=== PATIENT | male | born 1950 | race Caucasian/White ===

== ENCOUNTER 2023-01-23 09:46 | Inpatient (IN) | payer MEDICARE, OTHER ==
[~2023-01-23] VITALS: Ht 182.9 cm; Wt 62.1 kg
--- NOTE | 2023-01-23 09:55 | NUR ---
[id number] HOME, FOUND LAYING IN THE FLOOR S/P WELFARE CHECK, CONFUSED C/O BODY PAIN, BG 146 LOGISTICS TEAM LEAD.
[2023-01-23] MEDS ORDERED: IV NS 0.9% 1,000 ML BAG IV ONE ×2 (10:00→11:00)
[2023-01-23] MEDS ORDERED: DULO30CA2 PO (10:11)
[2023-01-23] MEDS ORDERED: FLUT12AE15 INH (10:11)
[2023-01-23] MEDS ORDERED: ALBU18HF2 INH (10:11)
[2023-01-23] MEDS ORDERED: TAMS-12 PO (10:11)
--- NOTE | 2023-01-23 10:11 | NUR ---
established iv line 20 g right ac
--- NOTE | 2023-01-23 10:11 | NUR ---
covid swab taken
--- NOTE | 2023-01-23 10:15 | NUR ---
blood sample obtained
[2023-01-23 10:27] LABS: BASOPHILS % (AUTO) 0.1 % (0.0-2.0); EOSINOPHILS % (AUTO) 0.1 % (0.0-6.0); HEMATOCRIT 40 % (39-51); LYMPHOCYTES % (AUTO) 5.4 % (20.0-44.0); MEAN CORPUSCULAR HGB CONC 32 g/dl (31.0-36.0); MEAN CORPUSCULAR VOLUME 102 fL (80-96); MONOCYTES # (AUTO) 1.2 K/uL (0.1-1.30); MONOCYTES % (AUTO) 6.3 % (2.0-12.0); NEUTROPHILS # (AUTO) 16.2 K/uL (1.8-8.9); NEUTROPHILS % (AUTO) 88.1 % (43.0-81.0); PLATELET COUNT (AUTO) 289 K/uL (150-450); RED BLOOD CELL COUNT(AUTO) 3.96 MIL/uL (4.5-6.0); WHITE BLOOD COUNT (AUTO) 18.4 K/uL (4.3-11.0)
[2023-01-23 10:41] LABS: ALCOHOL, BLOOD < 3 mg/dL (0-0); CARBON DIOXIDE 28 mmol/L (21-32); CHLORIDE 99 mmol/L (98-107); CREATININE 1.7 mg/dL (0.6-1.3); GLUCOSE 120 mg/dL (74-106); POTASSIUM 4.4 mmol/L (3.5-5.1); SODIUM SERUM 142 mmol/L (136-145); UREA NITROGEN, BLOOD 79 mg/dL (7-18)
[2023-01-23 10:42] LABS: CALCIUM, SERUM 17.2 mg/dL (8.5-10.1)
[2023-01-23] MEDS ORDERED: CEFTRIAXONE 1GM BAG (ER ONLY) 50 ML IV ONE ×2 (10:52→11:00)
[2023-01-23 10:55] LABS: ALANINE AMINOTRANSFERASE 30 U/L (12-78); ALBUMIN 3.7 g/dL (3.4-5.0); ALKALINE PHOSPHATASE 125 U/L (46-116); ASPARTATE AMINOTRANSFERASE 116 U/L (15-37); BILIRUBIN,DIRECT 0.3 mg/dL (0.0-0.2); BILIRUBIN,TOTAL 0.7 mg/dL (0.2-1.0); TOTAL PROTEIN, SERUM 8.6 g/dL (6.4-8.2)
[2023-01-23 11:18] LABS: THYROID STIMULATING HORMONE 0.777 uIU/mL (0.358-3.74)
--- NOTE | 2023-01-23 11:44 | NUR ---
Mike Stoner, friend. [phone]
[2023-01-23] MEDS ORDERED: ONDANSETRON HCL/PF 4 MG/2 ML VIAL IVP PRN (13:30)
[2023-01-23] MEDS ORDERED: Z GUARD REMEDY 4 OZ OINT TP PRN (13:30)
[2023-01-23] MEDS: IV NS 0.9% 1,000 ML IV SCH ×2 (13:30→22:37)
[2023-01-23] MEDS ORDERED: MAGNESIUM HYDROXIDE 30 ML UDC PO PRN (13:30)
[2023-01-23] MEDS ORDERED: MAG HYDROX/AL HYDROX/SIMETH 30 ML UDC PO PRN (13:30)
[2023-01-23] MEDS ORDERED: ACETAMINOPHEN 325 MG TABLET PO PRN (13:30)
--- NOTE | 2023-01-23 14:50 | NUR ---
16 FR ventura catheter inserted per sterile protocal. Immediate output 1100 ML of urine, color brown , clarity cloudy patient tolerated the procedure.
--- NOTE | 2023-01-23 14:50 | NUR ---
room assigned. 254 icu. admitting aware
[2023-01-23] MEDS ORDERED: ENOXAPARIN SODIUM 30 MG/0.3 ML DISP.SYRIN SQ SCH (15:00)
[2023-01-23] MEDS ORDERED: PIPERACILLIN /TAZOBACTAM 2.25 G in IV D5W 50 ML IV ONE (15:00)
[2023-01-23 15:30] LABS: BILIRUBIN,URINE 1+ (NEGATIVE); COLOR,URINE YELLOW (YELLOW); LEUKOCYTE ESTERASE ,URINE NEGATIVE (NEGATIVE); NITRITE, URINE NEGATIVE (NEGATIVE); PROTEIN,URINE 1+ mg/dl (NEGATIVE); UGLUCOSE NEGATIVE (NEGATIVE); UROBILINOGEN,URINE 0.2 EU/dL (0.2)
[2023-01-23] MEDS ORDERED: PAMIDRONATE 90 MG in IV NS 0.9% 500 ML IV ONE (15:30)
[2023-01-23] MEDS ORDERED: ZOSYN IVPB 3.375 G in IV D5W 50ml IV ONE (15:30)
[2023-01-23] MEDS ORDERED: ALBUTEROL FS 2.5 MG/0.5 ML VIAL.NEB NEB PRN (15:30)
[2023-01-23 15:59] LABS: BACTERIA,URINE RARE /HPF (None Seen); SQUAMOUS EPITHELIAL CELL,UR 0-2 /HPF (None Seen); WBC,URINE 0-2 /HPF (0-3)
[2023-01-23 16:00] LABS: MUCUS,URINE Few /LPF (None Seen); URINE AMORPHOUS URATE Few /HPF (None Seen)
--- NOTE | 2023-01-23 16:10 | NUR ---
report given to Walker MEDRANO
--- NOTE | 2023-01-23 16:20 | NUR ---
ROOM 109
--- NOTE | 2023-01-23 16:28 | NUR ---
report given to Soon RN , patient is going to [facility] for tele
--- NOTE | 2023-01-23 16:54 | NUR ---
moved to inpatient room safely per acls protocol
[2023-01-23 17:00] VITALS: BP 141/56
--- NOTE | 2023-01-23 17:00 | NUR ---
RN NOTE PATIENT ARRIVED FROM ER, A/OX1 CONFUSED. NC 4 LITERS O2 SAT 97%. RAC #20 NS INTACT AND FLUSHING. NO SKIN ISSUE. NOT ABLE TO OBTAIN INFORMATION FROM PATIENT DUE TO CONFUSION AND ALTERED MENTAL STATUS. PATIENT WAS FOUND ON THE FLOOR AND TAKEN TO ER. ALL SAFETY PRECAUTION IMPLEMENTED AND WILL CONTINUE THE CARE THROUGHOUT THE SHIFT AND WILL ENDORSE THE PATIENT TO THE SALES HOST NURSE FOR BRENDAN.
[2023-01-23] MEDS: FUROSEMIDE 20 MG/2 ML VIAL IV SCH (17:48)
[2023-01-23 18:46] VITALS: BP 141/56
--- NOTE | 2023-01-23 19:00 | NUR ---
RN NOTE PATIENT'S 1500 MEDIATIONS GIVEN LATE AROUND 1900 DUE TO DELAY FROM ER TRANSFERRING. PATIENT ARRIVED TO [facility] ROOM 109 AT 1700. NO MISSED MEDICATIONS JUST CHANGING IN TIME.
--- NOTE | 2023-01-23 19:30 | NUR ---
RN OPENING NOTES: RECEIVED PT IN BED, AWAKE, ALERT/ORIENTED X1 WITH EPISODES OF CONFUSION WITH UNCLEAR SPEECH. O2 AT 4L/MIN VIA N/C AND PT TOLERATED WELL. O2 SAT 98%. IV ACCESS ON RAC INTACT AND PATENT. NO S/S OF INFILTRATIONS. RUNNING NS AT 125 CC/HR. NO C/O PAIN OR DISCOMFORT. NO ACUTE DISTRESS. ON BILATERAL SOFT RESTRAINTS BUT STILL PT TRYING TO GET UP FROM THE BED. ALL SAFETY MEASURES IN PLACE. BED ALARM ON. BED IN LOWEST POSITION AND LOCKED. SIDE RAILS UP X3, PLACE CALL LIGHT WITH IN REACH. WILL CONTINUE TO MONITOR
[2023-01-23] MEDS: ENOXAPARIN SODIUM 30 MG/0.3 ML DISP.SYRIN SQ SCH (19:39)
[2023-01-23 20:00] VITALS: BP 132/81
[2023-01-23] MEDS: PIPERACILLIN /TAZOBACTAM 3.375 G in IV D5W 100 ML IV SCH (21:12)
[2023-01-24] VITALS: BP 118/78
[2023-01-24 04:00] VITALS: BP 139/66
[2023-01-24] MEDS: IV NS 0.9% 1,000 ML IV SCH ×3 (05:43→20:33)
[2023-01-24] MEDS: PIPERACILLIN /TAZOBACTAM 3.375 G in IV D5W 100 ML IV SCH ×3 (05:43→20:30)
--- NOTE | 2023-01-24 06:52 | NUR ---
RN CLOSING NOTES: PT IN BED, SLEEPING BUT EASILY TO AROUSE, ALERT/ORIENTED X1 WITH EPISODES OF CONFUSION WITH UNCLEAR SPEECH. O2 AT 2L/MIN VIA N/C AND PT TOLERATED WELL. O2 SAT 96%. IV ACCESS ON RAC INTACT AND PATENT. NO S/S OF INFILTRATIONS. RUNNING NS AT 125 CC/HR. NO C/O PAIN OR DISCOMFORT. NO ACUTE DISTRESS. ON BILATERAL SOFT RESTRAINTS. RELEASED Q 2HORS TO CHECK THE CIRCULATION. ALL DUE MEDS GIVEN ORDERED. ALL SAFETY MEASURES IN PLACE. BED ALARM ON. BED IN LOWEST POSITION AND LOCKED. SIDE RAILS UP X3, PLACE CALL LIGHT WITH IN REACH. WILL ENDORSE TO MORNING SHIFT NURSE.
[2023-01-24 07:28] LABS: BASOPHILS % (AUTO) 0.1 % (0.0-2.0); CARBON DIOXIDE 29 mmol/L (21-32); CHLORIDE 108 mmol/L (98-107); CREATININE 1.5 mg/dL (0.6-1.3); EOSINOPHILS % (AUTO) 0.1 % (0.0-6.0); GLUCOSE 101 mg/dL (74-106); HEMATOCRIT 33 % (39-51); HEMOGLOBIN 10.7 g/dL (13.5-17.5); LYMPHOCYTES # (AUTO) 1.1 K/uL (0.8-4.8); MAGNESIUM 1.9 mg/dL (1.8-2.4); MEAN CORPUSCULAR HGB CONC 33 g/dl (31.0-36.0); MEAN CORPUSCULAR VOLUME 102 fL (80-96); MONOCYTES # (AUTO) 0.8 K/uL (0.1-1.30); MONOCYTES % (AUTO) 5.7 % (2.0-12.0); NEUTROPHILS # (AUTO) 11.5 K/uL (1.8-8.9); NEUTROPHILS % (AUTO) 86.1 % (43.0-81.0); PHOSPHORUS 3.2 mg/dL (2.5-4.9); PLATELET COUNT (AUTO) 221 K/uL (150-450); POTASSIUM 3.6 mmol/L (3.5-5.1); SODIUM SERUM 148 mmol/L (136-145); UREA NITROGEN, BLOOD 75 mg/dL (7-18); WHITE BLOOD COUNT (AUTO) 13.3 K/uL (4.3-11.0)
[2023-01-24 07:49] LABS: CALCIUM, SERUM 14.1 mg/dL (8.5-10.1)
[2023-01-24 08:00] VITALS: BP 113/72
[2023-01-24 08:00] LABS: FERRITIN 3500 ng/mL (8-388)
--- NOTE | 2023-01-24 08:06 | NUR ---
supervisor post wave notes Patient found in bed sleeping, confused, on 2 nasal cannula, head of the elevated, no SOB, on telemonitor, HR 96, has ventura catheter on gravity with yellow, clear urine noted. Patient is on soft restrain, will monitor closely.Patient has R AC intact and flushed well on IV fluids as ordered,. Bed in lowest and locked position, safety measure implemented,will continue to monitor
[2023-01-24 08:29] LABS: IRON, SERUM 67 ug/dl (50-175); TOTAL IRON BINDING CAPACITY 181 ug/dl (250-450)
[2023-01-24] MEDS ORDERED: NEPRO VAN 237 ML CAN PO PRN (08:30)
[2023-01-24] MEDS: FUROSEMIDE 20 MG/2 ML VIAL IV SCH ×2 (09:59→16:05)
[2023-01-24] MEDS: TAMSULOSIN 0.4 MG CAP.SR.24H PO SCH (09:59)
[2023-01-24] MEDS ORDERED: PAMIDRONATE 90 MG in IV NS 0.9% 500 ML IV ONE (10:00)
[2023-01-24] MEDS: FLUTICASONE/VILANTEROL 1 EACH BLST.W.DEV IH SCH (10:00)
[2023-01-24 12:00] VITALS: BP 111/61
[2023-01-24] MEDS: QUETIAPINE FUMARATE 25 MG TABLET PO PRN (12:52)
--- NOTE | 2023-01-24 12:56 | NUR ---
PATIENT CONFUSED DESPITE SOFT WRIST TRYING TO GET OUT OF BED ,MD NOTIFIED PRN SEROQUEL GIVEN.FALL RISK PRECAUTION OBSERVED.
[2023-01-24] MEDS: CALCITONIN,SALMON,SYNTHETIC 3.7 ML SPRAY.PUMP NS SCH (15:18)
[2023-01-24 16:00] VITALS: BP 138/52
--- NOTE | 2023-01-24 18:53 | NUR ---
PLANT TOUR GUIDE NOTES PATIENT IS IN BED, RESTING COMFORTABLE, UNABLE TO REMOVE SOFT RESTRAIN, PATIENT IS STILL AT RISK TO REMOVE ALL LINES AND AT RISK FOR FALLS. PATIENT HAS IV ON RIGHT AC INTACT AND FLUSHED WELL. PATIENT ON IV FLUIDS AND REFUSED DINNER AT THIS TIME. PATIENT ON ASSEMBLER GOLD FRAME ST HR 109. PATIENT IN LOWER BED, LOCKED POSITION, CALL LIGHT WITHIN REACH, WILL MONITOR CLOSELY AND SAFETY MEASURE IMPLEMENTED.
--- NOTE | 2023-01-24 19:30 | NUR ---
RN NOTE RECEIVED PT IN BED, ASLEEP, BUT EASILY AROUSABLE. NO S/SX OF ACUTE DISTRESS. PT SEEMS TO BE COMFORTABLE. ON 2LPM VIA NC, WELL ROSSY, NO SOB, NO ACUTE RESP DISTRESS NOTED. PT ATTACHED TO MEDICINAL PLANT PICKER. CURRENTLY INFUSING NS AT 125ML/HR ON LILI, NO S/SX OF CX. NO INFX/INFILTRATION ON IV SITE. FC IN PLACED, PATENT AND SECURED, DRAINING CLEAR YELLOW URINE. BILATERAL SOFT WRIST ON. SAFETY PRECAUTIONS IMPLEMENTED AT ALL TIMES. WILL CONT POC.
[2023-01-24 20:00] VITALS: BP 121/60
[2023-01-24] MEDS: ENOXAPARIN SODIUM 30 MG/0.3 ML DISP.SYRIN SQ SCH (20:32)
--- NOTE | 2023-01-24 23:32 | NUR ---
RN NOTE PT SODIUM LEVEL 148, PT CURRENTLY RECEIVING NS AT 125ML/HR. NOTIFIED MD GOLDBERG WITH ORDER TO CHANGE TO IV D51/2 NS AT 100ML/HR.
[2023-01-25] VITALS: BP 130/60
[2023-01-25] MEDS: IV D5/0.45 NACL 1,000 ML IV PRN ×2 (01:16→10:25)
[2023-01-25 04:00] VITALS: BP 128/96
[2023-01-25] MEDS: PIPERACILLIN /TAZOBACTAM 3.375 G in IV D5W 100 ML IV SCH ×3 (05:11→20:33)
--- NOTE | 2023-01-25 06:50 | NUR ---
RN NOTE PT REMAINS IN STABLE CONDITION. NO SIGNIFICANT CHANGES NOTED. WILL ENDORSE TO AM SHIFT.
--- NOTE | 2023-01-25 06:57 | NUR ---
OPENING NOTE RECEIVED PATIENT IS RESTING IN BED COMFORTABLY,SLEEPING BUT AROUSABLE,NO SIGNS OF IN DISTRESS, SAFETY MEASURE ARE IN PLACED, BED IN LOW POSITION, SIDE RAILS UPX3, CALL LIGHT WITHIN REACHED.
[2023-01-25 08:00] VITALS: BP 145/65
[2023-01-25 08:07] LABS: IMMUNOGLOBULIN A, SERUM 231 mg/dL (61-437); IMMUNOGLOBULIN G, SERUM 918 mg/dL (603-1613); IMMUNOGLOBULIN M, SERUM 166 mg/dL (15-143)
[2023-01-25] MEDS: TAMSULOSIN 0.4 MG CAP.SR.24H PO SCH (09:38)
[2023-01-25] MEDS: FUROSEMIDE 20 MG/2 ML VIAL IV SCH ×2 (09:38→16:08)
[2023-01-25] MEDS: FLUTICASONE/VILANTEROL 1 EACH BLST.W.DEV IH SCH (09:42)
[2023-01-25] MEDS: QUETIAPINE FUMARATE 25 MG TABLET PO PRN ×2 (09:48→20:33)
[2023-01-25] MEDS: CALCITONIN,SALMON,SYNTHETIC 3.7 ML SPRAY.PUMP NS SCH (10:01)
[2023-01-25 12:00] VITALS: BP 116/65
--- NOTE | 2023-01-25 12:16 | NUR ---
INFORMED DR PFEIFFER REGARDING A PROCEDURE TOMORROW CT NEEDLE BIOPSY OF THE [place]UN[place], ASKED FOR SECOND SIGNATURE, DR GALVAN SIGNED FIRST. NPO AFTER MIDNIGHT.
[2023-01-25 13:11] LABS: BASOPHILS % (AUTO) 0.2 % (0.0-2.0); EOSINOPHILS % (AUTO) 0.3 % (0.0-6.0); HEMATOCRIT 32 % (39-51); HEMOGLOBIN 10.4 g/dL (13.5-17.5); LYMPHOCYTES # (AUTO) 0.9 K/uL (0.8-4.8); LYMPHOCYTES % (AUTO) 8.2 % (20.0-44.0); MEAN CORPUSCULAR HGB CONC 33 g/dl (31.0-36.0); MEAN CORPUSCULAR VOLUME 101 fL (80-96); MONOCYTES # (AUTO) 0.6 K/uL (0.1-1.30); MONOCYTES % (AUTO) 5.8 % (2.0-12.0); NEUTROPHILS % (AUTO) 85.5 % (43.0-81.0); PLATELET COUNT (AUTO) 194 K/uL (150-450); RED BLOOD CELL COUNT(AUTO) 3.14 MIL/uL (4.5-6.0); WHITE BLOOD COUNT (AUTO) 10.5 K/uL (4.3-11.0)
[2023-01-25 13:29] LABS: CALCIUM, SERUM 12.9 mg/dL (8.5-10.1); CARBON DIOXIDE 32 mmol/L (21-32); CHLORIDE 108 mmol/L (98-107); CREATININE 1.5 mg/dL (0.6-1.3); GLUCOSE 127 mg/dL (74-106); SODIUM SERUM 148 mmol/L (136-145); UREA NITROGEN, BLOOD 52 mg/dL (7-18)
[2023-01-25 13:32] LABS: POTASSIUM 2.8 mmol/L (3.5-5.1)
--- NOTE | 2023-01-25 13:35 | NUR ---
INFORMED DR PFEIFFER RR: K-2.8 TODAY
[2023-01-25 14:07] LABS: *SPE A/G RATIO 0.7 (0.7-1.7); *SPE ALPHA-1-GLOBULIN 0.5 g/dL (0.0-0.4); *SPE ALPHA-2-GLOBULIN 1.1 g/dL (0.4-1.0); *SPE BETA GLOBULIN 1.1 g/dL (0.7-1.3); *SPE M-SPIKE Not Observed g/dL (Not Observed)
[2023-01-25] MEDS: POTASSIUM CL. PREMIX PERIPHER. 50 ML IV SCH ×4 (14:25→17:37)
[2023-01-25 16:00] VITALS: BP 105/56
--- NOTE | 2023-01-25 19:01 | NUR ---
CLOSING NOTE PATIENT IS AWAKE,ALERTX1 BUT CONFUSED, NO SIGNS OF IN DISTRESS, VITAL SIGNS ARE STABLE, NO COMPLAINT OF PAIN , UNLABORED BREATHING ON 2L/MIN OF O2, BILATERAL SOFT RESTRAINTS IN PLACE, SAFETY MEASURES IN PLACED, BED IN LOW POSITION, SIDE RAILS UP X3, CALL LIGHT WITHIN REACH.
--- NOTE | 2023-01-25 19:05 | NUR ---
DIESEL TRUCK MECHANIC OPENING NOTE RECEIVED PATIENT IN BED, AWAKE, AAO X1, CONFUSED, O2 VIA NC AT 2L, NO SOB/DISTRESS NOTED. ON TELE MONITOR ST WITH HR 103. IV ACCESS ON LEFT AC RUNNING D5 1/2 NS AT 100 ML/HR. BILATERAL SOFT RESTRAINTS IN PLACE. VASQUEZ CATHETER INTACT AND PATENT, DRAINING CLEAR YELLOW URINE. SAFETY MEASURES IN PLACE: BED LOCKED AND IN LOWEST POSITION, CALL LIGHT WITHIN REACH, SIDE RAILS UP X3.
[2023-01-25 20:00] VITALS: BP 120/68
[2023-01-26] VITALS: BP 107/72
[2023-01-26 03:40] LABS: BAND % (MANUAL) 2 % (0.0-5.0); BASOPHILS % (MANUAL) 0 % (0.0-2.0); EOSINOPHILS % (MANUAL) 0 % (0-4); LYMPHOCYTES % (MANUAL) 9 % (16-48); MONOCYTES % (MANUAL) 5 % (0-11.0); NEUTROPHILS % (MANUAL) 84 (42-76)
[2023-01-26 04:00] VITALS: BP 129/76
[2023-01-26] MEDS: IV D5/0.45 NACL 1,000 ML IV PRN (04:30)
--- NOTE | 2023-01-26 04:40 | NUR ---
CRYSTAL INSPECTOR NOTE BLOOD CULTURE LAB RESULT: GRAM POSITIVE COCCI.
[2023-01-26] MEDS: PIPERACILLIN /TAZOBACTAM 3.375 G in IV D5W 100 ML IV SCH ×3 (04:44→20:34)
[2023-01-26 06:22] LABS: BASOPHILS % (AUTO) 0.1 % (0.0-2.0); EOSINOPHILS % (AUTO) 0.3 % (0.0-6.0); HEMATOCRIT 29 % (39-51); HEMOGLOBIN 9.7 g/dL (13.5-17.5); LYMPHOCYTES % (AUTO) 9.9 % (20.0-44.0); MEAN CORPUSCULAR HGB CONC 34 g/dl (31.0-36.0); MEAN CORPUSCULAR VOLUME 101 fL (80-96); MONOCYTES # (AUTO) 0.7 K/uL (0.1-1.30); MONOCYTES % (AUTO) 6.3 % (2.0-12.0); NEUTROPHILS # (AUTO) 8.8 K/uL (1.8-8.9); NEUTROPHILS % (AUTO) 83.4 % (43.0-81.0); PLATELET COUNT (AUTO) 173 K/uL (150-450); RED BLOOD CELL COUNT(AUTO) 2.84 MIL/uL (4.5-6.0); WHITE BLOOD COUNT (AUTO) 10.6 K/uL (4.3-11.0)
--- NOTE | 2023-01-26 06:40 | NUR ---
AFTER SCHOOL PROGRAM TEACHER CLOSING NOTE PATIENT IN BED, AWAKE, AAO X1, CONFUSED, O2 VIA NC AT 2L, NO SOB/DISTRESS NOTED. ON TELE MONITOR ST WITH HR 103. IV ACCESS RIGHT HAND #20G RUNNING D5 1/2 NS AT 100 ML/HR. BILATERAL SOFT RESTRAINTS IN PLACE, CIRCULATION CHECKED. VASQUEZ CATHETER INTACT AND PATENT, DRAINING CLEAR YELLOW URINE. NPO FOR CT NEEDLE BIOPSY. ALL DUE MEDS WERE GIVEN AND NEEDS ATTENDED. VSS. SAFETY MEASURES MAINTAINED: BED LOCKED AND IN LOWEST POSITION, CALL LIGHT WITHIN REACH, SIDE RAILS UP X3. WILL ENDORSE TO ONCOMING NURSE FOR BRENDAN.
[2023-01-26 06:46] LABS: CALCIUM, SERUM 12.4 mg/dL (8.5-10.1); CARBON DIOXIDE 31 mmol/L (21-32); CHLORIDE 110 mmol/L (98-107); CREATININE 1.4 mg/dL (0.6-1.3); GLUCOSE 128 mg/dL (74-106); POTASSIUM 2.9 mmol/L (3.5-5.1); SODIUM SERUM 149 mmol/L (136-145); UREA NITROGEN, BLOOD 46 mg/dL (7-18)
--- NOTE | 2023-01-26 07:45 | NUR ---
INFORMED DR PFEIFFER RE: K-2.9 TODAY
[2023-01-26 08:00] VITALS: BP 138/75
[2023-01-26] MEDS ORDERED: POTASSIUM CHLORIDE 10 MEQ/50 ML PREMIXED IVPB FOR PERIPHERAL LINE IV ONE (08:30)
[2023-01-26] MEDS: FLUTICASONE/VILANTEROL 1 EACH BLST.W.DEV IH SCH (09:00)
[2023-01-26] MEDS: TAMSULOSIN 0.4 MG CAP.SR.24H PO SCH (09:00)
[2023-01-26] MEDS: FUROSEMIDE 20 MG/2 ML VIAL IV SCH ×2 (09:14→16:13)
[2023-01-26] MEDS: POTASSIUM CL. PREMIX PERIPHER. 50 ML IV SCH ×6 (09:14→16:38)
[2023-01-26] MEDS: CALCITONIN,SALMON,SYNTHETIC 3.7 ML SPRAY.PUMP NS SCH (09:28)
--- NOTE | 2023-01-26 09:45 | NUR ---
PATIENT WENT FOR CT NEEDLE BIOPSY
[2023-01-26] MEDS ORDERED: FLUMAZENIL 0.5 MG VIAL IV PRN (10:30)
[2023-01-26] MEDS ORDERED: MIDAZOLAM HCL 2 MG/2ML VIAL IV PRN (10:30)
[2023-01-26] MEDS ORDERED: FENTANYL PF 250MCG/5ML AMPUL IV PRN (10:30)
[2023-01-26] MEDS ORDERED: NALOXONE PREFILLED SYRINGE 2 MG/2 ML SYRINGE IV PRN (10:30)
--- NOTE | 2023-01-26 10:46 | NUR ---
CT NEEDLE CANCELLED AT THIS TIME, THEY WILL TRY LATER TODAY PER RADIOLOGY
--- NOTE | 2023-01-26 11:23 | NUR ---
PATIENT PICKED UP BY TRANSPORT GOING TO CT NEEDLE BIOPSY
[2023-01-26] MEDS ORDERED: IV NS 0.9% 1,000 ML ONE (11:57)
[2023-01-26 12:00] VITALS: BP 111/75
--- NOTE | 2023-01-26 12:45 | NUR ---
PATIENT CAME BACK FROM PROCEDURE, PATIENT IS A LITTLE DROWSY D/T VERSED GIVEN AR RADIOLOGY BUT AROUSABLE, RESUME IV MEDICATIONS
[2023-01-26 15:03] LABS: BAND % (MANUAL) 3 % (0.0-5.0); LYMPHOCYTES % (MANUAL) 5 % (16-48); MONOCYTES % (MANUAL) 5 % (0-11.0); MYELOCYTES % 2 % (0-0); NEUTROPHILS % (MANUAL) 85 (42-76)
[2023-01-26 16:00] VITALS: BP 141/74
--- NOTE | 2023-01-26 16:53 | NUR ---
KCL 10MEQ/50ML (6TH BAG).STARTED FOR ONE HOUR RUN. TOTAL OF 60MEQ TOTAL OF 6 BAGS.
[2023-01-26 20:00] VITALS: BP 114/67
[2023-01-27] VITALS: BP 139/73
[2023-01-27 04:00] VITALS: BP 137/75
[2023-01-27] MEDS: PIPERACILLIN /TAZOBACTAM 3.375 G in IV D5W 100 ML IV SCH ×3 (04:31→21:13)
--- NOTE | 2023-01-27 06:12 | NUR ---
HORSES OR MULES TEAMSTER CLOSING NOTE PATIENT IN BED, AWAKE, A/O X1, WITH PERIOD OF CONFUSION O2 VIA NC AT 2L, NO SOB/DISTRESS NOTED. ON TELE MONITOR ST WITH HR 103. IV ACCESS RIGHT HAND #20G RUNNING D5 1/2 NS AT 100 ML/HR. BILATERAL SOFT RESTRAINTS IN PLACE, CIRCULATION CHECKED. VASQUEZ CATHETER INTACT AND PATENT, DRAINING CLEAR YELLOW URINE. NPO FOR CT NEEDLE BIOPSY. ALL DUE MEDS WERE GIVEN AND NEEDS ATTENDED. VSS. SAFETY MEASURES MAINTAINED: BED LOCKED AND IN LOWEST POSITION, CALL LIGHT WITHIN REACH, SIDE RAILS UP X3. WILL ENDORSE TO MORNING SHIFT NURSE FOR BRENDAN.
--- NOTE | 2023-01-27 07:28 | NUR ---
RN OPENING NOTES: RECEIVED PT IN BED, AWAKE, ALERT/ORIENTED X1 WITH EPISODES OF CONFUSION WITH UNCLEAR SPEECH. O2 AT 2L/MIN VIA N/C AND PT TOLERATED WELL. O2 SAT 98%. IV ACCESS ON RAC INTACT AND PATENT. NO S/S OF INFILTRATIONS. RUNNING D5 1/2 NS AT 125 CC/HR. NO C/O PAIN OR DISCOMFORT. NO ACUTE DISTRESS. ON BILATERAL SOFT RESTRAINTS BUT STILL PT TRYING TO GET UP FROM THE BED. ALL SAFETY MEASURES IN PLACE. BED ALARM ON. BED IN LOWEST POSITION AND LOCKED. SIDE RAILS UP X3, PLACE CALL LIGHT WITH IN REACH. WILL CONTINUE TO MONITOR
[2023-01-27] MEDS: IV D5/0.45 NACL 1,000 ML IV PRN ×2 (07:38→14:26)
[2023-01-27 08:00] VITALS: BP 145/75
[2023-01-27] MEDS: FUROSEMIDE 20 MG/2 ML VIAL IV SCH (08:02)
[2023-01-27] MEDS: TAMSULOSIN 0.4 MG CAP.SR.24H PO SCH (08:02)
[2023-01-27] MEDS: FLUTICASONE/VILANTEROL 1 EACH BLST.W.DEV IH SCH (08:07)
[2023-01-27] MEDS: CALCITONIN,SALMON,SYNTHETIC 3.7 ML SPRAY.PUMP NS SCH (08:11)
[2023-01-27 11:07] LABS: BASOPHILS % (AUTO) 0.2 % (0.0-2.0); HEMOGLOBIN 9.7 g/dL (13.5-17.5); LYMPHOCYTES # (AUTO) 1.2 K/uL (0.8-4.8); LYMPHOCYTES % (AUTO) 11.3 % (20.0-44.0); NEUTROPHILS # (AUTO) 8.7 K/uL (1.8-8.9)
[2023-01-27 11:19] LABS: CARBON DIOXIDE 31 mmol/L (21-32); CHLORIDE 109 mmol/L (98-107); CREATININE 1.4 mg/dL (0.6-1.3); GLUCOSE 152 mg/dL (74-106); SODIUM SERUM 148 mmol/L (136-145); UREA NITROGEN, BLOOD 36 mg/dL (7-18)
[2023-01-27 11:20] LABS: EOSINOPHILS % (AUTO) 0.8 % (0.0-6.0); HEMATOCRIT 29 % (39-51); MEAN CORPUSCULAR HGB CONC 33 g/dl (31.0-36.0); MEAN CORPUSCULAR VOLUME 102 fL (80-96); MONOCYTES # (AUTO) 0.6 K/uL (0.1-1.30); MONOCYTES % (AUTO) 5.7 % (2.0-12.0); PLATELET COUNT (AUTO) 152 K/uL (150-450); RED BLOOD CELL COUNT(AUTO) 2.88 MIL/uL (4.5-6.0); WHITE BLOOD COUNT (AUTO) 10.6 K/uL (4.3-11.0)
[2023-01-27 11:29] LABS: POTASSIUM 2.8 mmol/L (3.5-5.1)
[2023-01-27] MEDS: POTASSIUM CL. PREMIX PERIPHER. 50 ML IV SCH ×6 (11:55→17:38)
[2023-01-27 12:00] VITALS: BP 105/62
[2023-01-27 12:46] LABS: BAND % (MANUAL) 7 % (0.0-5.0); EOSINOPHILS % (MANUAL) 1 % (0-4); LYMPHOCYTES % (MANUAL) 13 % (16-48); METAMYELOCYTES % 1 % (0-0); MONOCYTES % (MANUAL) 3 % (0-11.0); NEUTROPHILS % (MANUAL) 75 (42-76)
[2023-01-27 16:00] VITALS: BP 127/61
--- NOTE | 2023-01-27 19:03 | NUR ---
RN CLOSING NOTE PATIENT IN BED, AWAKE, A/O X1, WITH PERIOD OF CONFUSION O2 VIA NC AT 2L, NO SOB/DISTRESS NOTED. ON TELE MONITOR ST WITH HR 103. IV ACCESS RIGHT HAND #20G RUNNING D5 1/2 NS AT 100 ML/HR. BILATERAL SOFT RESTRAINTS IN PLACE, CIRCULATION CHECKED. AVSQUEZ CATHETER INTACT AND PATENT, DRAINING CLEAR YELLOW URINE. ON PURE DIET , SWALLOW EVAL IS PENDING ALL DUE MEDS WERE GIVEN AND NEEDS ATTENDED. SAFETY MEASURES MAINTAINED: BED LOCKED AND IN LOWEST POSITION, CALL LIGHT WITHIN REACH, SIDE RAILS UP X3. WILL ENDORSE TO CREATIVE DEVELOPER NURSE FOR BRENDAN.
--- NOTE | 2023-01-27 19:30 | NUR ---
CASHIER WRAPPER OPENING NOTE RECEIVED PT IN BED RESTING, A/O X1, WITH PERIODS OF CONFUSION. ON O2 VIA NC AT 2L, NO SOB/DISTRESS NOTED. ON TELE MONITOR ST WITH HR 103. IV ACCESS RIGHT HAND #20G RUNNING D5 1/2 NS AT 100 ML/HR. BILATERAL SOFT RESTRAINTS IN PLACE, CIRCULATION CHECKED, WNL. VASQUEZ CATHETER INTACT AND PATENT, DRAINING CLEAR YELLOW URINE. ON PUREED DIET BUT PT HAVING TROUBLE SWALLOWING. FOR SWALLOW EVAL. SAFETY MEASURES IN PLACE: BED LOCKED AND IN LOWEST POSITION, CALL LIGHT WITHIN REACH, SIDE RAILS UP X3. WILL CONTINUE TO MONITOR AND ASSIST.
[2023-01-27 20:00] VITALS: BP 128/66
[2023-01-28] VITALS: BP 100/68
[2023-01-28 04:00] VITALS: BP 123/69
[2023-01-28] MEDS: PIPERACILLIN /TAZOBACTAM 3.375 G in IV D5W 100 ML IV SCH ×3 (04:32→21:50)
[2023-01-28] MEDS: IV D5/0.45 NACL 1,000 ML IV PRN ×2 (05:38→15:33)
[2023-01-28 05:50] LABS: BASOPHILS % (AUTO) 0.3 % (0.0-2.0); EOSINOPHILS % (AUTO) 1.2 % (0.0-6.0); HEMATOCRIT 27 % (39-51); HEMOGLOBIN 8.9 g/dL (13.5-17.5); LYMPHOCYTES # (AUTO) 1.3 K/uL (0.8-4.8); MEAN CORPUSCULAR HGB CONC 33 g/dl (31.0-36.0); MEAN CORPUSCULAR VOLUME 101 fL (80-96); MONOCYTES # (AUTO) 0.6 K/uL (0.1-1.30); NEUTROPHILS # (AUTO) 7.8 K/uL (1.8-8.9); NEUTROPHILS % (AUTO) 79.5 % (43.0-81.0); PLATELET COUNT (AUTO) 146 K/uL (150-450); RED BLOOD CELL COUNT(AUTO) 2.67 MIL/uL (4.5-6.0); WHITE BLOOD COUNT (AUTO) 9.8 K/uL (4.3-11.0)
[2023-01-28 06:07] LABS: CALCIUM, SERUM 10.4 mg/dL (8.5-10.1); CREATININE 1.2 mg/dL (0.6-1.3)
--- NOTE | 2023-01-28 07:00 | NUR ---
RESIDENT CAREGIVER CLOSING NOTE PT IN BED RESTING AT THIS TIME. A/O X1, WITH PERIODS OF CONFUSION. STABLE ON O2 VIA NC AT 3L, NO SOB/DISTRESS NOTED. ON TELE MONITOR SR WITH PVC'S 81. IV ACCESS RIGHT HAND #20G RUNNING D5 1/2 NS AT 100 ML/HR. BILATERAL SOFT RESTRAINTS IN PLACE, CIRCULATION CHECKED, WNL. VASQUEZ CATHETER INTACT AND PATENT, DRAINING CLEAR YELLOW URINE. ALL CARE PROVIDED AND MEDS TOLERATED WELL. SAFETY MEASURES MAINTAINED: BED LOCKED AND IN LOWEST POSITION, CALL LIGHT WITHIN REACH, SIDE RAILS UP X3. WILL ENDORSE BRENDAN TO DAY SHIFT NURSE.
[2023-01-28 08:00] VITALS: BP 135/75
[2023-01-28] MEDS: FLUTICASONE/VILANTEROL 1 EACH BLST.W.DEV IH SCH (08:36)
[2023-01-28] MEDS: CALCITONIN,SALMON,SYNTHETIC 3.7 ML SPRAY.PUMP NS SCH (08:38)
[2023-01-28] MEDS: FOLIC ACID 1 MG TABLET PO SCH (08:38)
[2023-01-28] MEDS: TAMSULOSIN 0.4 MG CAP.SR.24H PO SCH (08:38)
[2023-01-28] MEDS ORDERED: POTASSIUM CHLORIDE 10 MEQ/50 ML PREMIXED IVPB FOR PERIPHERAL LINE IV ONE (11:00)
[2023-01-28] MEDS: POTASSIUM CL. PREMIX PERIPHER. 50 ML IV SCH ×4 (11:08→13:47)
[2023-01-28 12:00] VITALS: BP 135/75
[2023-01-28 15:35] LABS: EOSINOPHILS % (MANUAL) 1 % (0-4); LYMPHOCYTES % (MANUAL) 12 % (16-48); MONOCYTES % (MANUAL) 3 % (0-11.0); NEUTROPHILS % (MANUAL) 84 (42-76)
[2023-01-28 16:07] VITALS: BP 124/66
--- NOTE | 2023-01-28 18:43 | NUR ---
FOOD AND NUTRITION SERVICES SUPERVISOR CLOSING NOTE PT IN BED RESTING AT THIS TIME. A/O X1, WITH PERIODS OF CONFUSION. STABLE ON O2 VIA NC AT 4L, NO SOB/DISTRESS NOTED. ON TELE MONITOR SR WITH PVC'S 88. IV ACCESS RIGHT HAND #20G RUNNING D5 1/2 NS AT 100 ML/HR. BILATERAL SOFT RESTRAINTS IN PLACE, CIRCULATION CHECKED, WNL. VASQUEZ CATHETER INTACT AND PATENT, DRAINING CLEAR YELLOW URINE. ALL CARE PROVIDED AND MEDS TOLERATED WELL. SAFETY MEASURES MAINTAINED: BED LOCKED AND IN LOWEST POSITION, CALL LIGHT WITHIN REACH, SIDE RAILS UP X3. WILL ENDORSE BRENDAN TO HAZARDOUS MATERIALS DRIVER NURSE.
--- NOTE | 2023-01-28 19:30 | NUR ---
ROAD DESIGN DRAFTSPERSON OPENING NOTES RECEIVED PT IN BED RESTING AT THIS TIME. A/O X1, WITH PERIODS OF CONFUSION. STABLE ON O2 VIA NC AT 4L, BREATHING EVEN AND UNLABORED AND NO SOB/DISTRESS NOTED. ON TELE MONITOR SR WITH PVC'S 88. IV ACCESS RIGHT HAND #20G RUNNING D5 1/2 NS AT 100 ML/HR. BILATERAL SOFT RESTRAINTS IN PLACE, CIRCULATION CHECKED, WNL. VASQUEZ CATHETER INTACT AND PATENT, DRAINING CLEAR YELLOW URINE. SAFETY MEASURES MAINTAINED: BED LOCKED AND IN LOWEST POSITION, CALL LIGHT WITHIN REACH, SIDE RAILS UP X3. WILL CONTINUE WITH THE PLAN OF CARE.
--- NOTE | 2023-01-28 19:40 | NUR ---
RN NOTES PATIENT IS AGITATED AND COMBATIVE. PATIENT IS KICKING AND HIT THE HEAD OF THE AS400 PROGRAMMER. WAS PUT ON RESTRAINT. WILL GIVE THE MEDICATION AND CONTINUE TO MONITOR PATIENT.
[2023-01-28] MEDS: QUETIAPINE FUMARATE 25 MG TABLET PO PRN (19:52)
[2023-01-28 20:00] VITALS: BP 159/78
--- NOTE | 2023-01-28 20:10 | NUR ---
RN NOTES PATIENT SPIT THE MEDICATION. INFORMED DR GOLDBERG. PATIENT WAS GIVEN ATIVAN 0.5 IV Q 6 PRN. WILL CONTINUE TO MONITOR PATIENT.
[2023-01-28] MEDS ORDERED: LORAZEPAM INJ 2 MG/ML VIAL IV PRN (20:30)
[2023-01-29] VITALS: BP 127/78
[2023-01-29 04:00] VITALS: BP 137/76
[2023-01-29] MEDS: PIPERACILLIN /TAZOBACTAM 3.375 G in IV D5W 100 ML IV SCH ×3 (04:29→21:11)
[2023-01-29] MEDS: IV D5/0.45 NACL 1,000 ML IV PRN (04:38)
[2023-01-29 06:50] LABS: BASOPHILS % (AUTO) 0.4 % (0.0-2.0); HEMATOCRIT 26 % (39-51); HEMOGLOBIN 8.7 g/dL (13.5-17.5); LYMPHOCYTES # (AUTO) 1.4 K/uL (0.8-4.8); LYMPHOCYTES % (AUTO) 13.2 % (20.0-44.0); MEAN CORPUSCULAR HGB CONC 33 g/dl (31.0-36.0); MEAN CORPUSCULAR VOLUME 101 fL (80-96); MONOCYTES # (AUTO) 0.7 K/uL (0.1-1.30); MONOCYTES % (AUTO) 6.1 % (2.0-12.0); NEUTROPHILS # (AUTO) 8.7 K/uL (1.8-8.9); NEUTROPHILS % (AUTO) 79.3 % (43.0-81.0); PLATELET COUNT (AUTO) 130 K/uL (150-450)
--- NOTE | 2023-01-29 07:05 | NUR ---
RN OPENING NOTE RECEIVED PT IN BED, ASLEEP. ON O2 VIA NC AT 2L, SATURATION 96%, BREATHING UNLABORED. EXTERNAL HOSTESS SHOWS SR WITH PVC'S 88. IV ACCESS RIGHT HAND #20G RUNNING D5 1/2 NS AT 100 ML/HR. BILATERAL SOFT RESTRAINTS IN PLACE, CIRCULATION CHECKED, WNL. VASQUEZ CATHETER INTACT AND PATENT, DRAINED 300 CC CLEAR YELLOW URINE. SAFETY MEASURES MAINTAINED: BED LOCKED AND IN LOWEST POSITION, CALL LIGHT WITHIN REACH, SIDE RAILS UP X3. WILL CONTINUE TO MONITOR,
[2023-01-29 07:12] LABS: CALCIUM, SERUM 9.7 mg/dL (8.5-10.1); CREATININE 1.1 mg/dL (0.6-1.3)
--- NOTE | 2023-01-29 07:16 | NUR ---
WELFARE ELIGIBILITY INTERVIEWER CLOSING NOTES PT IN BED RESTING AT THIS TIME. A/O X1, WITH PERIODS OF CONFUSION. STABLE ON O2 VIA NC AT 2L, BREATHING EVEN AND UNLABORED AND NO SOB/DISTRESS NOTED. ON TELE MONITOR SR WITH PVC'S 88. IV ACCESS RIGHT HAND #20G RUNNING D5 1/2 NS AT 100 ML/HR AND ZOSYN @ 25ML/HR. BILATERAL SOFT RESTRAINTS IN PLACE, CIRCULATION CHECKED, WNL. VASQUEZ CATHETER INTACT AND PATENT, DRAINED 300 CC CLEAR YELLOW URINE. SAFETY MEASURES MAINTAINED: BED LOCKED AND IN LOWEST POSITION, CALL LIGHT WITHIN REACH, SIDE RAILS UP X3. WILL ENDORSE TO THE NEXT SHIFT.
[2023-01-29 08:00] VITALS: BP 132/75
[2023-01-29 08:03] LABS: BAND % (MANUAL) 3 % (0.0-5.0); EOSINOPHILS % (MANUAL) 1 % (0-4); LYMPHOCYTES % (MANUAL) 15 % (16-48); METAMYELOCYTES % 1 % (0-0); MONOCYTES % (MANUAL) 8 % (0-11.0); NEUTROPHILS % (MANUAL) 72 (42-76)
[2023-01-29] MEDS: FOLIC ACID 1 MG TABLET PO SCH (08:24)
[2023-01-29] MEDS: TAMSULOSIN 0.4 MG CAP.SR.24H PO SCH (08:24)
[2023-01-29] MEDS: CALCITONIN,SALMON,SYNTHETIC 3.7 ML SPRAY.PUMP NS SCH (08:25)
[2023-01-29] MEDS: FLUTICASONE/VILANTEROL 1 EACH BLST.W.DEV IH SCH (09:15)
[2023-01-29] MEDS: POTASSIUM CHLORIDE 20 MEQ TAB.PRT.SR PO SCH ×3 (09:43→11:40)
[2023-01-29 12:00] VITALS: BP 110/59
[2023-01-29] MEDS: QUETIAPINE FUMARATE 25 MG TABLET PO PRN (15:02)
--- NOTE | 2023-01-29 15:05 | NUR ---
PATIENT HAD EPISODE OF RESTLESSNESS, TRIED TO SLIDE DOWN FROM BED, DIDN'T COOPERATE. PRN SEROQUEL PO CRUSHED IN APPLE SAUCE GIVEN.
[2023-01-29 16:00] VITALS: BP 114/86
--- NOTE | 2023-01-29 18:51 | NUR ---
RN CLOSING NOTE PATIENT IS IN BED CONFUSED, ON O2 VIA NC AT 2L, BREATHING EVEN, NO SOB NOTED. IV ACCESS RIGHT HAND #20G, FLUSHING WELL, BILATERAL SOFT RESTRAINTS IN PLACE, CIRCULATION CHECKED, WNL. VASQUEZ CATHETER INTACT AND PATENT, DRAINED CLEAR YELLOW URINE. PATIENT SCHEDULED FOR CT CHEST/ABDOMEN/PELVIS FOR TOMORROW, WILL BE NPO AFTER MIDNIGHT. SAFETY MEASURES MAINTAINED: BED LOCKED AND IN LOWEST POSITION, CALL LIGHT WITHIN REACH, SIDE RAILS UP X3. WILL ENDORSE TO THE NEXT SHIFT.
[2023-01-29 20:00] VITALS: BP 136/46
--- NOTE | 2023-01-29 20:10 | NUR ---
DIGITAL LEARNING PLATFORMS MANAGER OPENING NOTES RECEIVED PATIENT IN BED, AWAKE AND CONFUSED,,A/O X 1. ON MODERATE HIGH BACK REST POSITION. HOOKED TO OXYGEN VIA NASAL CANNULA AT 2LPM SATURATING AT 95%. ATTACHED TO TELE MONITORING DEVICE. WITH IV ACCESS AT RIGHT WRIST #22G WITH D5 1/2 NS 1000ML AT 100ML/HOUR INFUSING WELL. WITH ACTIVE BOWEL SOUNDS USES DIAPER. WITH VASQUEZ CATHETER CONNECTED TO URINE BAG WITH URINE OUTPUT NOTED. ON BED REST. NOTED REDNESS AT SACRAL AREA.NO COMPLAIN OF PAIN AT THIS TIME. SO S/S OF PAIN OR ANY DISCOMFORT AT THIS TIME. KEPT BED ON LOWER LOCKED POSITION, KEPT SIDE RAILS X 3 ALL THE TIME.PLACED BED ALAR ON AT ALL TIMES, KEPT PATIENT WARM AND COMFORTABLE. KEPT CALL LIGHT WITHIN AT REACH. WILL CONTINUE TO MONITOR.
[2023-01-30] VITALS: BP 135/52
[2023-01-30 04:00] VITALS: BP 118/60
[2023-01-30] MEDS: IV D5/0.45 NACL 1,000 ML IV PRN (04:48)
[2023-01-30] MEDS: PIPERACILLIN /TAZOBACTAM 3.375 G in IV D5W 100 ML IV SCH (04:48)
[2023-01-30 06:16] LABS: CALCIUM, SERUM 8.9 mg/dL (8.5-10.1); POTASSIUM 3.6 mmol/L (3.5-5.1)
--- NOTE | 2023-01-30 06:45 | NUR ---
RN NOTES PATIENT IV LIBE OUT. INSERTED NEW IV ACCESS AT RIGHT FAC #20G PATENT AND INTACT. WILL CONTINU TO MONITOR
--- NOTE | 2023-01-30 07:00 | NUR ---
furnace repairer helper closing notes' PATIENT IS IN BED, AWAKE AND COFUNSED. WITH RESTRAINT ON BOTH HANDS, ON MODERATE HIGH BACK REST POSITION. HOOKED TO OXYGEN VIA NASAL CANNULA AT 2 LPM SATURATING WELL. ATTACHED TO TELE MONITORING DEVICE. WITH IV ACCESS AT RIGHT WRIST #22G WITH D5 1/2 NS 1000ML AT 100 ML/HR INFUSING WELL. WITH INDWELLING VASQUEZ CATHTER CONNCECTED TO URINE BAG NOTED URINE OUTPUT AND RECORDED. NO S/S OF PAIN OR ANY DISCOMFORT AT THIS TIME. ALL DUE MEDICATIONS GIVEN AND ALL NEEDS ATTENDED. KEPT BED ON LOWER LOCKED POSITION. KPET SIDE RAILS UP X 2 ALL THE TIMES. KEPT PATIENT WARM AND COMFORTABLE. WILL ENDORSED TO AM SHIFT FOR BRENDAN.
--- NOTE | 2023-01-30 07:10 | NUR ---
PROCESS IMPROVEMENT ENGINEER OPENING NOTES Received pt awake in bed AOX1 with episodes of confusion. No signs of pain or discomfort at this time. Pt is on 2L NC and tolerating it well. IV access on LFA 20G running IVF D5 1/2 NS @100cc/hr. Pt is NPO for a procedure that will happen today. HOB elevated to 30-45 degrees. Siderails up at all times x2. Call light within reach. Will continue to monitor.
[2023-01-30 08:00] VITALS: BP 131/60
[2023-01-30] MEDS: FOLIC ACID 1 MG TABLET PO SCH (08:38)
[2023-01-30] MEDS: TAMSULOSIN 0.4 MG CAP.SR.24H PO SCH (08:38)
[2023-01-30] MEDS: FLUTICASONE/VILANTEROL 1 EACH BLST.W.DEV IH SCH (09:00)
[2023-01-30] MEDS: CALCITONIN,SALMON,SYNTHETIC 3.7 ML SPRAY.PUMP NS SCH (09:12)
[2023-01-30 12:00] VITALS: BP 119/79
[2023-01-30] MEDS ORDERED: PIPE3.379 IV (12:16)
[2023-01-30] MEDS ORDERED: CALC3.7S NS (12:16)
[2023-01-30] MEDS ORDERED: Quetiapine Fumarate PO (12:16)
[2023-01-30] MEDS ORDERED: FENT50AM IV (12:16)
--- NOTE | 2023-01-30 13:45 | NUR ---
BOX STRAPPER NOTES New [facility] from MD [facility]. Report given to MARCELA Thibodeaux.
[2023-01-30] MEDS ORDERED: GADOTERATE MEGLUMINE 10 MMOL/20 ML VIAL IV ONE (14:13)
--- NOTE | 2023-01-30 14:33 | NUR ---
VESSEL SCRAPPER NOTES Pt picked up by [facility] ambulance. Report and paperwork given to EMT. IV access kept in d/t pt continuing IV atb in the facility. Tele box removed. [place] [facility] [place]
== END 2023-01-30 14:14 | DRG 166 ==
LOC: ER 09:50 → ICU 14:52 → TELE1 16:21
PROVIDERS: ADMIT Internal Medicine; ATTEND Nurse Practitioner Acute Care
PROC: 0PB13ZX Excision of 1 to 2 Ribs, Percutaneous Approach, Diagnostic (ICD-10-PCS; principal; 2023-01-26)
DX: C34.90 Malignant neoplasm of unspecified part of unspecified bronchus or lung (principal); G93.41 Metabolic encephalopathy; J96.01 Acute respiratory failure with hypoxia; N17.0 Acute kidney failure with tubular necrosis; C79.51 Secondary malignant neoplasm of bone; E87.20 Acidosis, unspecified; E87.0 Hyperosmolality and hypernatremia; R64 Cachexia; M62.82 Rhabdomyolysis; M48.55XA Collapsed vertebra, not elsewhere classified, thoracolumbar region, initial encounter for fracture; E83.52 Hypercalcemia; E86.0 Dehydration; Z20.822 Contact with and (suspected) exposure to COVID-19; Z79.51 Long term (current) use of inhaled steroids; Z79.899 Other long term (current) drug therapy; Z74.09 Other reduced mobility; E86.1 Hypovolemia; N30.90 Cystitis, unspecified without hematuria; N40.0 Benign prostatic hyperplasia without lower urinary tract symptoms; J44.9 Chronic obstructive pulmonary disease, unspecified; D72.829 Elevated white blood cell count, unspecified; D53.9 Nutritional anemia, unspecified; Z86.59 Personal history of other mental and behavioral disorders; E87.6 Hypokalemia; N28.1 Cyst of kidney, acquired; Z78.1 Physical restraint status
CPT/HCPCS: 36415; 70450-TC; 70553-TC; 71045-TC; 71250-TC; 76770-TC; 77012-TC; 80048-TC; 80076-TC; 81001; 82306; 82378; 82550-TC; 82553; 82607-TC; 82728-TC; 82784; 83540-TC; 83605-TC; 83735-TC; 83970; 84100-TC; 84155; 84165; 84443-TC; 84484-TC; 85025-TC; 85045-TC; 85385-TC; 85610-TC; 85730-TC; 86334; 86706; 86803; 87040-TC; 87081-TC; 87086-TC; 87340; 87806; 92526; 92611-TC; A4223; A9575; C9803; G0378; G0480; J0696; J1650; J1940; J2060; J2250; J2430; J2543; J3010; J3480; J3490; J7030; J7040; J7042; J7050; J7060; J7120

== ENCOUNTER 2023-02-03 18:32 | Inpatient (IN) | payer MEDICARE, OTHER ==
[~2023-02-03] VITALS: Ht 185.4 cm; Wt 78.0 kg
[~2023-02-03 18:32] MED LIST: ALBU18HF2 INH; CALC3.7S NS; DULO30CA2 PO; FENT50AM IV; FLUT12AE15 INH; PIPE3.379 IV; Quetiapine Fumarate PO; TAMS-12 PO
[2023-02-03] MEDS ORDERED: methylPREDNISolone SOD SUCC 125 MG/2ML VIAL ONE (19:56)
[2023-02-03] MEDS ORDERED: methylPREDNISolone SOD SUCC 125 MG/2ML VIAL IV ONE (20:00)
[2023-02-03] MEDS ORDERED: ALBUTEROL FS 2.5 MG/3 ML VIAL.NEB NEB ONE (20:00)
[2023-02-03] MEDS ORDERED: IV NS 0.9% 1,000 ML IV ONE ×2 (20:00→21:30)
[2023-02-03] MEDS ORDERED: IPRATROPIUM NEB FS 0.5 MG/2.5 ML AMPUL.NEB NEB ONE (20:00)
[2023-02-03 20:05] LABS: BASOPHILS # (AUTO) 0.1 K/uL (0.0-0.2); BASOPHILS % (AUTO) 0.4 % (0.0-2.0); EOSINOPHILS % (AUTO) 0.4 % (0.0-6.0); HEMATOCRIT 24 % (39-51); LYMPHOCYTES # (AUTO) 0.9 K/uL (0.8-4.8); LYMPHOCYTES % (AUTO) 8.3 % (20.0-44.0); MEAN CORPUSCULAR HGB CONC 33 g/dl (31.0-36.0); MEAN CORPUSCULAR VOLUME 101 fL (80-96); MONOCYTES # (AUTO) 0.4 K/uL (0.1-1.30); MONOCYTES % (AUTO) 3.6 % (2.0-12.0); NEUTROPHILS # (AUTO) 9.8 K/uL (1.8-8.9); NEUTROPHILS % (AUTO) 87.3 % (43.0-81.0); PLATELET COUNT (AUTO) 220 K/uL (150-450); RED BLOOD CELL COUNT(AUTO) 2.42 MIL/uL (4.5-6.0); WHITE BLOOD COUNT (AUTO) 11.3 K/uL (4.3-11.0)
[2023-02-03 20:18] LABS: CALCIUM, SERUM 8.8 mg/dL (8.5-10.1); CREATININE 0.9 mg/dL (0.6-1.3); POTASSIUM 2.9 mmol/L (3.5-5.1)
[2023-02-03] MEDS ORDERED: ALBUTEROL FS 2.5 MG/3 ML VIAL.NEB ONE (20:18)
[2023-02-03] MEDS ORDERED: IPRATROPIUM NEB FS 0.5 MG/2.5 ML AMPUL.NEB ONE (20:18)
[2023-02-03 20:24] LABS: ALBUMIN 2.6 g/dL (3.4-5.0); BILIRUBIN,DIRECT 0.2 mg/dL (0.0-0.2); BILIRUBIN,TOTAL 0.4 mg/dL (0.2-1.0); TOTAL PROTEIN, SERUM 6.7 g/dL (6.4-8.2)
--- NOTE | 2023-02-03 21:00 | NUR ---
EMT AT PT'S BEDSIDE FOR EKG
[2023-02-03] MEDS ORDERED: POTASSIUM CHLORIDE 20 MEQ TAB.PRT.SR PO ONE (21:30)
--- NOTE | 2023-02-03 22:24 | NUR ---
report given to roland wilson for inpatient admission
--- NOTE | 2023-02-03 22:50 | NUR ---
pt taken to 3w w/ acls transport. no belongings on arrival to ER.
[2023-02-03] MEDS ORDERED: Z GUARD REMEDY 4 OZ OINT TP PRN (23:00)
[2023-02-03] MEDS ORDERED: ONDANSETRON HCL/PF 4 MG/2 ML VIAL IVP PRN (23:00)
[2023-02-03] MEDS ORDERED: MAGNESIUM HYDROXIDE 30 ML UDC PO PRN (23:00)
--- NOTE | 2023-02-03 23:30 | NUR ---
ORE DIGGERSTAFF MIDWIFE NOTE RECEIVED PATIENT FROM ER VIA GURNEY. PATIENT IS AWAKE, ALERT AND ORIENTED X 2-3. ON O2 INHALATION @ 2 LPM VIA NC; TOLERATING WELL. PATIENT NOTED TO HAVE CONGESTION AND LABORED BREATHING. VS TAKEN: BP 154/78, HR 109, RR 22, T 97.7 O2 SAT 94%. BODY AND SKIN ASSESSMENT DONE; WAS ABLE TO TAKE PICTURE ON HIS SACRUM AREA BUT REFUSED TO HAVE PICTURES TAKEN OF HIS BILATERAL FEET AND SCROTUM. WITH VASQUEZ CATH IN PLACE DRAINING TO YELLOW URINE OUTPUT. ORIENTED TO STAFF, ROOM AND UNIT. ABLE TO MAKE NEEDS KNOWN. SAFETY MEASURES IMPLEMENTED: HEAD OF BED ELEVATED, CALL LIGHT AND TABLE WITHIN REACH, SIDE RAILS UP X 3, BED IN LOWEST LOCKED POSITION. WILL CONTINUE PLAN OF CARE.
[2023-02-03] MEDS: DOXYCYCLINE HYCLATE (100 MG) 100 MG TABLET PO SCH (23:34)
[2023-02-03] MEDS: IV D5W 1,000 ML IV PRN (23:37)
--- NOTE | 2023-02-03 23:37 | NUR ---
RN Note Vibramycin 100 mg 1 tab given po crushed and mixed with vanilla pudding. Spit it out afterwards. Patient refused to take all the crushed med. Patient verbalized "you are trying to knock me out."
[2023-02-04] VITALS (14 sets, daily range): BP systolic 126–177; BP diastolic 67–117
[2023-02-04] MEDS: PANTOPRAZOLE 40 MG TABLET.DR PO SCH ×2 (07:30→08:03)
--- NOTE | 2023-02-04 07:45 | NUR ---
PROPERTY CONSULTANT CLOSING NOTE PATIENT IN BED; AWAKE, ALERT AND ORIENTED X 2-3. ON O2 INHALATION @ 2 LPM VIA NC; TOLERATING WELL. ON TELE MONITORING WHICH READS ST HR-102 BPM. WITH IV ACCESS ON LFA 20G PATENT AND INTACT INFUSING WITH D5W RUNNING @ 75 ML/HR; FLUSHES WELL. WITH VASQUEZ CATH IN PLACE DRAINING TO YELLOW URINE OUTPUT. SAFETY MEASURES IN PLACE: HEAD OF BED ELEVATED, CALL LIGHT AND TABLE WITHIN REACH, SIDE RAILS UP X 3, BED IN LOWEST LOCKED POSITION. ENDORSED TO MORNING SHIFT FOR BRENDAN.
--- NOTE | 2023-02-04 07:53 | NUR ---
COOK SHORT ORDER OPENING NOTE PATIENT IN BED; AWAKE, ALERT AND ORIENTED X 2-3. ON O2 INHALATION @ 3 LPM VIA NC; TOLERATING WELL. ON TELE MONITORING WHICH READS ST HR-98 BPM. PATIENT HAS IV ACCESS ON LEFT FA 20G PATENT AND INTACT INFUSING WITH D5W RUNNING @ 75 ML/HR; FLUSHES WELL. HAS VASQUEZ CATH IN PLACE DRAINING TO GRAVITY CD BAG, CLEAR, YELLOW URINE. SAFETY MEASURES IN PLACE: HEAD OF BED ELEVATED, ASPIRATION PRECAUTIONS MAINTAINED; CALL LIGHT AND TABLE WITHIN REACH, SIDE RAILS UP X 3, BED IN LOWEST LOCKED POSITION. WILL CONTINUE TO CARE FOR PATIENT AND MONITOR PER [facility] P[facility].
[2023-02-04 08:41] LABS: BASOPHILS % (AUTO) 0.1 % (0.0-2.0); EOSINOPHILS % (AUTO) 0.1 % (0.0-6.0); HEMATOCRIT 23 % (39-51); HEMOGLOBIN 7.5 g/dL (13.5-17.5); LYMPHOCYTES # (AUTO) 0.9 K/uL (0.8-4.8); LYMPHOCYTES % (AUTO) 7.2 % (20.0-44.0); MEAN CORPUSCULAR HGB CONC 32 g/dl (31.0-36.0); MEAN CORPUSCULAR VOLUME 101 fL (80-96); MONOCYTES # (AUTO) 0.3 K/uL (0.1-1.30); MONOCYTES % (AUTO) 2.5 % (2.0-12.0); NEUTROPHILS # (AUTO) 11.7 K/uL (1.8-8.9); NEUTROPHILS % (AUTO) 90.1 % (43.0-81.0); PLATELET COUNT (AUTO) 195 K/uL (150-450); RED BLOOD CELL COUNT(AUTO) 2.31 MIL/uL (4.5-6.0); WHITE BLOOD COUNT (AUTO) 12.9 K/uL (4.3-11.0)
[2023-02-04 08:58] LABS: CALCIUM, SERUM 8.5 mg/dL (8.5-10.1); CARBON DIOXIDE 20 mmol/L (21-32); CHLORIDE 112 mmol/L (98-107); CREATININE 0.8 mg/dL (0.6-1.3); GLUCOSE 129 mg/dL (74-106); MAGNESIUM 1.4 mg/dL (1.8-2.4); PHOSPHORUS 2.3 mg/dL (2.5-4.9); POTASSIUM 3.3 mmol/L (3.5-5.1); SODIUM SERUM 146 mmol/L (136-145); UREA NITROGEN, BLOOD 16 mg/dL (7-18)
[2023-02-04] MEDS: HEPARIN SODIUM, PORCINE 5000 UNITS/1 ML VIAL SQ SCH ×3 (09:00→21:31)
[2023-02-04 09:07] LABS: THYROID STIMULATING HORMONE 1.261 uIU/mL (0.358-3.74)
[2023-02-04] MEDS: DOXYCYCLINE HYCLATE (100 MG) 100 MG TABLET PO SCH ×2 (09:15→21:29)
--- NOTE | 2023-02-04 09:40 | NUR ---
MEDICATION REFUSAL Patient 's H/H = 7.5, asked FACILITY WORKER Nilesh if okay to give heparin 5000 units SQ. Told to give heparin because chronic anemia and no expected bleeding. No signs of bleeding. Patient refused heparin SQ, doxycycline PO, and protonix PO.
[2023-02-04] MEDS: methylPREDNISolone SOD SUCC 40 MG/ML VIAL IV SCH ×3 (10:00→21:29)
[2023-02-04] MEDS: ALBUTEROL FS 2.5 MG/3 ML VIAL.NEB NEB SCH ×3 (10:21→18:56)
[2023-02-04] MEDS: IPRATROPIUM NEB FS 0.5 MG/2.5 ML AMPUL.NEB NEB SCH ×3 (10:22→18:56)
[2023-02-04] MEDS ORDERED: IV NS 0.9% 250 ML IV PRN (10:30)
--- NOTE | 2023-02-04 10:30 | NUR ---
TRANSFER TO ICU FROM [facility] RN NOTE Patient became very pale and showing signs of dyspnea. ABGs , CXR, solumedrol 4mg IV push, and transfer to ICU ordered by hospitalist Ganga Galloway DNP. Transferred patient to ICU Room 256 - Bed 1, and gave receiving ICU nurse bedside verbal report.
[2023-02-04] MEDS: POTASSIUM CL. PREMIX PERIPHER. 50 ML IV SCH ×2 (10:31→11:31)
--- NOTE | 2023-02-04 10:39 | NUR ---
ICU/RN PT TRANSFERRED TO ROOM 256. REPORT RECEIVED AT BEDSIDE FROM DINO TOLEDO RN. PT AWAKE, VERBALIZING NEEDS. PER REPORT, PT REFUSED MORNING MEDICATION. AT THIS TIME, PT IS AGREEING TO IV MEDICATION AND PLACEMENT OF MIDLINE. PT REFUSES VASQUEZ CATH INSERTION. PT ON 2L O2 NC SAT 96% ON BEDSIDE MONITOR, SOME SHORTNESS OF BREATH REPORTED BY PT. VITAL SIGNS STABLE. BED LOCKED AND IN LOWEST POSITION, CALL LIGHT WITHIN REACH, 3 SIDE RAILS UP.
--- NOTE | 2023-02-04 10:57 | NUR ---
ICU/RN PER PT REQUEST, CALLED HIS FIRE EXTINGUISHER INSTALLER FRANCISCO GONZALEZ AT [phone]. NO ANSWER. VOICEMAIL LEFT.
[2023-02-04] MEDS: Magnesium 1GM/D5W 100ML PREMIX 100 ML IV SCH ×2 (12:29→13:24)
[2023-02-04 13:53] LABS: IRON, SERUM 62 ug/dl (50-175); TOTAL IRON BINDING CAPACITY 141 ug/dl (250-450)
[2023-02-04] MEDS: IV D5W 1,000 ML IV PRN (14:25)
[2023-02-04 14:32] LABS: FERRITIN 5828 ng/mL (8-388)
[2023-02-04] MEDS ORDERED: MULT-447 PO (14:34)
[2023-02-04] MEDS ORDERED: AMIN30LI2 PO (14:34)
[2023-02-04] MEDS ORDERED: ZINC50TA69 PO (14:34)
[2023-02-04] MEDS ORDERED: ACET-868 PO ×2 (14:34)
[2023-02-04] MEDS ORDERED: NA P133E RC (14:34)
[2023-02-04] MEDS ORDERED: FENT1PAT4 TD (14:34)
[2023-02-04] MEDS ORDERED: TRAM50TA2 PO (14:34)
[2023-02-04] MEDS ORDERED: ASCO-352 PO (14:34)
[2023-02-04] MEDS ORDERED: SENN-18 PO (14:34)
[2023-02-04] MEDS ORDERED: BISA10SU11 RC (14:34)
[2023-02-04] MEDS ORDERED: DOCU-141 PO (14:34)
[2023-02-04] MEDS ORDERED: MAGN400O6 PO (14:34)
[2023-02-04] MEDS ORDERED: CALC3.7S (14:34)
[2023-02-04] MEDS ORDERED: ALLA266C2 TP (14:34)
[2023-02-04] MEDS ORDERED: MEGE400O4 PO (14:34)
[2023-02-04] MEDS: FOLIC ACID 1 MG TABLET PO SCH (14:36)
--- NOTE | 2023-02-04 14:36 | NUR ---
ICU/RN PT REFUSING PO MEDS AT THIS TIME.
[2023-02-04 14:59] LABS: BILIRUBIN,URINE 1+ (NEGATIVE); COLOR,URINE YELLOW (YELLOW); LEUKOCYTE ESTERASE ,URINE NEGATIVE (NEGATIVE); NITRITE, URINE NEGATIVE (NEGATIVE); PROTEIN,URINE 2+ mg/dl (NEGATIVE); UGLUCOSE NEGATIVE (NEGATIVE); UROBILINOGEN,URINE 0.2 EU/dL (0.2)
[2023-02-04] MEDS ORDERED: NEUTRA PHOS 1 POWD.PACKET PO ONE (16:00)
[2023-02-04 16:53] LABS: BACTERIA,URINE RARE /HPF (None Seen); RBC,URINE 81-100 /HPF (0-2); WBC,URINE 0-2 /HPF (0-3)
[2023-02-04 16:54] LABS: COARSE GRANULAR CASTS,URINE Few /LPF (None Seen); SQUAMOUS EPITHELIAL CELL,UR 0-2 /HPF (None Seen)
--- NOTE | 2023-02-04 18:35 | NUR ---
ICU/RN BP ELEVATED 170/110 AND 177/87. DNP ANAHI NOTIFIED. ORDER RECEIVED FOR HYDRALAZINE IVP 10MG PRN.
[2023-02-04] MEDS: hydrALAZINE HCL IV 20 MG VIAL IV PRN (18:40)
--- NOTE | 2023-02-04 22:37 | NUR ---
PT I S AWAKE ALERT AND ORIENTED TIMES 3. PT C/O HEADACHE BP 161/85 HR 97 O2SAT 94RR 20. WILL ADMINISTER TYLENOL ATS ORDERED.
[2023-02-04] MEDS: ACETAMINOPHEN 325 MG TABLET PO PRN (22:41)
[2023-02-04] MEDS: IPRATROPIUM NEB FS 0.5 MG/2.5 ML AMPUL.NEB NEB PRN (23:20)
[2023-02-04] MEDS: ALBUTEROL FS 2.5 MG/0.5 ML VIAL.NEB NEB PRN (23:20)
[2023-02-05] VITALS (18 sets, daily range): BP systolic 129–175; BP diastolic 67–95
[2023-02-05] MEDS: hydrALAZINE HCL IV 20 MG VIAL IV PRN ×3 (02:03→20:08)
[2023-02-05] MEDS: ALBUTEROL FS 2.5 MG/0.5 ML VIAL.NEB NEB PRN (02:24)
[2023-02-05] MEDS: IPRATROPIUM NEB FS 0.5 MG/2.5 ML AMPUL.NEB NEB PRN (02:25)
--- NOTE | 2023-02-05 02:27 | NUR ---
TRISTA Smith called to rosa pt's c/o tired ness and SOB. Asked TRISTA. , Stat CXR ordered. Radioloy notied. RT notified to repeat dose pf breathing trearment per TRISTA Lyon. O2SAT 95 HR 83. r Addendum: 02/05/23 at 0235 by [facility] RN1 RN Correction. TRISTA Lyon .
[2023-02-05] MEDS: IV D5W 1,000 ML IV PRN ×2 (03:26→13:55)
--- NOTE | 2023-02-05 03:30 | NUR ---
Pt removing breathing treatment. Reassurane provided. Remain at the bedside to ensure tratment is completed, XRAY is done as ordered.
[2023-02-05 04:38] LABS: BASOPHILS % (AUTO) 0.2 % (0.0-2.0); EOSINOPHILS % (AUTO) 0.1 % (0.0-6.0); HEMATOCRIT 25 % (39-51); HEMOGLOBIN 8.2 g/dL (13.5-17.5); LYMPHOCYTES # (AUTO) 1.2 K/uL (0.8-4.8); LYMPHOCYTES % (AUTO) 6.7 % (20.0-44.0); MEAN CORPUSCULAR HGB CONC 32 g/dl (31.0-36.0); MEAN CORPUSCULAR VOLUME 102 fL (80-96); MONOCYTES # (AUTO) 0.5 K/uL (0.1-1.30); NEUTROPHILS # (AUTO) 16.2 K/uL (1.8-8.9); PLATELET COUNT (AUTO) 208 K/uL (150-450); RED BLOOD CELL COUNT(AUTO) 2.49 MIL/uL (4.5-6.0); WHITE BLOOD COUNT (AUTO) 18.1 K/uL (4.3-11.0)
[2023-02-05 04:51] LABS: CALCIUM, SERUM 8.5 mg/dL (8.5-10.1); CREATININE 0.8 mg/dL (0.6-1.3); POTASSIUM 3.8 mmol/L (3.5-5.1)
[2023-02-05] MEDS: methylPREDNISolone SOD SUCC 40 MG/ML VIAL IV SCH ×3 (05:56→20:52)
[2023-02-05] MEDS: PANTOPRAZOLE 40 MG TABLET.DR PO SCH (07:30)
--- NOTE | 2023-02-05 07:50 | NUR ---
ENDORSE REPORT TO MORNING NURSE. SBAR GIVEN TO MORNING. PT IS RESTING.
[2023-02-05] MEDS: HEPARIN SODIUM, PORCINE 5000 UNITS/1 ML VIAL SQ SCH ×2 (08:13→20:56)
[2023-02-05] MEDS: FOLIC ACID 1 MG TABLET PO SCH (08:13)
[2023-02-05] MEDS: DOXYCYCLINE HYCLATE (100 MG) 100 MG TABLET PO SCH (08:13)
--- NOTE | 2023-02-05 08:17 | NUR ---
ICU/RN PT COMPLAINING OF NAUSEA, REFUSING ALL PO MEDS. ZOFRAN IV PRN GIVEN. BREATHING TREATMENT GIVEN BY RT
[2023-02-05] MEDS: IPRATROPIUM NEB FS 0.5 MG/2.5 ML AMPUL.NEB NEB SCH ×3 (08:22→20:23)
[2023-02-05] MEDS: ALBUTEROL FS 2.5 MG/3 ML VIAL.NEB NEB SCH ×3 (08:22→20:23)
[2023-02-05] MEDS ORDERED: CEFEPIME 1 GM in IV D5W 50 ML IV SCH (10:00)
--- NOTE | 2023-02-05 10:00 | NUR ---
ICU/RN CALLED RETURNED FROM FRANCISCO GONZALEZ, PT'S ARMORED MACHINE OPERATOR. FRANCISCO GONZALEZ DOES NOT HAVE POWER OF NANOTECHNOLOGIST AT THIS TIME, EVEN THOUGH PATIENT VERBALIZES WANTING FRANCISCO TO MAKE MEDICAL DECISIONS FOR HIM AT THIS TIME. PATIENT A&OX4. MUSA ARNOLD.
--- NOTE | 2023-02-05 10:10 | NUR ---
ICU/RN PER MUSA CHRISTIAN, PT SCHEDULED FOR GTUBE PLACEMENT IN AM IF PT AGREES. PATIENT A&OX4 AT THIS TIME. PT AGREES TO THE SURGERY AND ANESTHESIA. RISKS AND BENEFITS OF THE PROCEDURE EXPLAINED AND PT VERBALIZES UNDERSTANDING. PT SIGNED CONSENTS, WITNESSED BY MARCELA ROSA AND MARCELA AMOS.
--- NOTE | 2023-02-05 11:00 | NUR ---
PATIENT TRANSFER/ADMIT TO [facility] [place] FROM CHARTERED FINANCIAL ANALYST NOTE Patient arrived in bed from ICU room 256-1 just before 11:00 am, alert, oriented x 3, calm without any signs of distress, vital signs stable, afebrile, LS diminished with rhonchi, on oxygen via NC @ 2 LPM. Safety precautions and aspiration precautions maintained. Will continue to monitor and care for patient per hospitalist's POC.
[2023-02-05] MEDS: ENSURE ENLIVE 237 ML LIQUID (VANILLA) PO SCH ×2 (13:00→17:50)
[2023-02-05] MEDS: CEFEPIME 2 GM in IV D5W 100 ML IV SCH ×2 (14:02→20:52)
--- NOTE | 2023-02-05 18:56 | NUR ---
[facility] [employer] CLOSING NOTE (DAYSHIFT) Patient is sitting up in high Fowlers position, HOB elevated for aspiration precautions, alert and oriented x 3 with some confusion. Able to make needs known. On oxygen @ 3LPM via NC with oxygen saturation showint 95%. Respirations slightly more rapid at 22 to 24 per minute starting this afternoon. Denies pain at the moment. Temp was 98.7 F axillary this after noon up from 97.6 F axillary around noon today. Will endorse to night nurse, Segundo, for BRENDAN.
--- NOTE | 2023-02-05 19:30 | NUR ---
HOT CAR OPERATOR OPENING NOTE RECEIVED PT AWAKE IN BED, IN HIGH FOWLERS POSITION. A/O X2-3, ORIENTED TO PERSON AND PLACE, SOME CONFUSION NOTED. ABLE TO MAKE NEEDS KNOWN. ON O2 3L VIA NC, SOME T[place]NEA NOTED. DENIES PAIN AT THIS TIME. IV ACCESS L WRIST #22G SL, LILI MIDLINE #18G, BOTH PATENT AND INTACT, FLUSHING WELL. CURRENTLY RUNNING D5W @ 75 ML/HR. FOR POSSIBLE PEG TUBE PLACEMENT TOMORROW. NPO AFTER MIDNIGHT. SAFETY PRECAUTIONS IN PLACE: BED LOCKED AND IN LOW POSITION, SIDE RAILS UP X3, CALL LIGHT AND TRAY TABLE WITHIN REACH. WILL CONTINUE TO MONITOR AND ASSIST.
--- NOTE | 2023-02-05 20:00 | NUR ---
RN NOTE PT BP AT 172/86 AND C/O OF CHEST PAIN & SOB. TELE MONITOR SHOWING ST 101. GIVEN PRESCRIBED HYDRALAZINE. WILL CONTINUE TO MONITOR AND REASSESS BP.
--- NOTE | 2023-02-05 21:00 | NUR ---
RN NOTE PT BP REASSESSED AT 153/79. PT ALSO HAD BREATHING TX 1 HR EARLIER AND STATES IMPROVEMENT IN BREATHING. DENIES CHEST PAIN AT THIS TIME BUT C/O HEADACHE. GIVEN PRESCRIBED TYLENOL, GIVEN CRUSHED WITH APPLE SAUCE, TOLERATED WELL. WILL CONTINUE TO MONITOR.
[2023-02-05] MEDS: ACETAMINOPHEN 325 MG TABLET PO PRN (22:32)
[2023-02-06] VITALS (30 sets, daily range): BP systolic 101–164; BP diastolic 55–100
--- NOTE | 2023-02-06 03:45 | NUR ---
RN NOTE PT REFUSED BED BATH AND LINEN CHANGE AT THIS TIME.
[2023-02-06] MEDS: IV D5W 1,000 ML IV PRN ×2 (04:16→19:56)
[2023-02-06] MEDS: methylPREDNISolone SOD SUCC 40 MG/ML VIAL IV SCH (05:10)
[2023-02-06 06:25] LABS: EOSINOPHILS % (AUTO) 0.1 % (0.0-6.0); HEMATOCRIT 25 % (39-51); HEMOGLOBIN 8.2 g/dL (13.5-17.5); LYMPHOCYTES # (AUTO) 0.8 K/uL (0.8-4.8); LYMPHOCYTES % (AUTO) 4.5 % (20.0-44.0); MEAN CORPUSCULAR HGB CONC 32 g/dl (31.0-36.0); MEAN CORPUSCULAR VOLUME 103 fL (80-96); MONOCYTES # (AUTO) 0.5 K/uL (0.1-1.30); NEUTROPHILS # (AUTO) 16.6 K/uL (1.8-8.9); NEUTROPHILS % (AUTO) 92.4 % (43.0-81.0); PLATELET COUNT (AUTO) 116 K/uL (150-450); RED BLOOD CELL COUNT(AUTO) 2.46 MIL/uL (4.5-6.0)
[2023-02-06] MEDS: PANTOPRAZOLE 40 MG TABLET.DR PO SCH (06:42)
--- NOTE | 2023-02-06 06:43 | NUR ---
HYDROELECTRIC SYSTEMS TECHNICIAN CLOSING NOTE PT IN BED RESTING, IN HIGH FOWLERS POSITION. A/O X2-3, ORIENTED TO PERSON AND PLACE, WITH MOMENTS OF CONFUSION. ABLE TO MAKE NEEDS KNOWN. STABLE ON O2 3L VIA NC WITH SOME TACHYPNEA, O2 SAT AT 98%. DENIES PAIN AT THIS TIME. IV ACCESS L WRIST #22G SL, LILI MIDLINE #18G, BOTH PATENT AND INTACT, FLUSHING WELL. CURRENTLY RUNNING D5W @ 75 ML/HR. FOR POSSIBLE PEG TUBE PLACEMENT TODAY, NPO SINCE MIDNIGHT. ALL CARE PROVIDED AND MEDS TOLERATED WELL. SAFETY PRECAUTIONS MAINTAINED: BED LOCKED AND IN LOW POSITION, SIDE RAILS UP X3, CALL LIGHT AND TRAY TABLE WITHIN REACH. WILL ENDORSE BRENDAN TO DAY SHIFT NURSE. Addendum: 02/06/23 at 0646 by MARISSA JUAREZ RN VASQUEZ CATHETER INTACT DRAINING WILLI URINE, TOTAL 350 ML DURING SHIFT. Addendum: 02/06/23 at 0649 by MARISSA JUAREZ RN ON TELE MONITOR READING ST, 100 HR.
[2023-02-06 06:45] LABS: CALCIUM, SERUM 8.4 mg/dL (8.5-10.1); CREATININE 1.1 mg/dL (0.6-1.3); POTASSIUM 4.4 mmol/L (3.5-5.1)
[2023-02-06] MEDS ORDERED: ANESTHESIA TRAY IN PYXIS 1 EA TRAY MC ONE (07:30)
--- NOTE | 2023-02-06 07:30 | NUR ---
PLASTICS FABRICATION SUPERVISOR OPENING NOTE RECEIVED PT IN BED RESTING. A/O X2 WITH CONFUSION. ABLE TO MAKE NEEDS KNOWN. STABLE ON O2 3L VIA NC. IV ACCESS L WRIST #22G SL, LILI MIDLINE #18G, BOTH PATENT AND INTACT, FLUSHING WELL. CURRENTLY RUNNING D5W @ 75 ML/HR. PT IS ON EXTERNAL IT GENERALIST. NPO SINCE MIDNIGHT, OR TEAM BY BEDSIDE TO TAKE HIM FOR PEG PLACEMENT. RECEIVED CONSENT FROM FRANCISCO GONZALEZ FOR POSSIBLE BLOOD TRANSFUSION VIA PHONE. SAFETY PRECAUTIONS IN PLACE: BED LOCKED AND IN LOW POSITION, SIDE RAILS UP X3, CALL LIGHT AND TRAY TABLE WITHIN REACH. WILL CONTINUE TO MONITOR WHEN COMING BACK FROM PEG PLACEMENT.
[2023-02-06 07:56] LABS: BAND % (MANUAL) 11 % (0.0-5.0); LYMPHOCYTES % (MANUAL) 4 % (16-48); METAMYELOCYTES % 3 % (0-0); MONOCYTES % (MANUAL) 1 % (0-11.0); MYELOCYTES % 3 % (0-0); NEUTROPHILS % (MANUAL) 78 (42-76)
[2023-02-06] MEDS: ENSURE ENLIVE 237 ML LIQUID (VANILLA) PO SCH ×3 (08:00→17:00)
[2023-02-06] MEDS: ALBUTEROL FS 2.5 MG/3 ML VIAL.NEB NEB SCH ×3 (08:03→19:32)
[2023-02-06] MEDS: IPRATROPIUM NEB FS 0.5 MG/2.5 ML AMPUL.NEB NEB SCH ×3 (08:03→19:32)
[2023-02-06] MEDS: HEPARIN SODIUM, PORCINE 5000 UNITS/1 ML VIAL SQ SCH ×2 (09:00→21:00)
[2023-02-06] MEDS: FOLIC ACID 1 MG TABLET PO SCH (09:00)
[2023-02-06] MEDS: CEFEPIME 2 GM in IV D5W 100 ML IV SCH ×2 (10:00→21:41)
--- NOTE | 2023-02-06 10:00 | NUR ---
RN NOTE PT RETURNED FROM PEG PLACEMENT, VS TAKEN, PT IS DROWSY, WILL CONTINUE TO MONITOR.
--- NOTE | 2023-02-06 10:15 | NUR ---
RN NOTE NOTED RIGHT HAND SWELLING AND BRUISE AFTER PT COMING BACK FROM PEG PLACEMENT. PICTURES TAKEN, RECORDED IN CHART. DR CHRISTIAN NOTIFIED, ORDER RIGHT HAND XR. WILL CONTINUE TO MONITOR.
--- NOTE | 2023-02-06 15:30 | NUR ---
RN NOTE NOTICED PT WITH DECLINING, PT USING ACCESSORY MUSCLE, R 36, HOSPITALIST NOTIFIED DR LOPEZ, ORDERED ABG, ABG COLLECTED. CHARGE NURSE AWARE, VITAL SIGNS TAKEN, BP 119/64, P 94, R 36, TEMP 98.6, O2 90-92% ON O2 VIA NC @3LPM. PORTABLE PERSONNEL ANALYST APPLIED, TRANSFERRED PT TO ICU FOR CLOSE MONITOR. REPORT GIVEN TO ICU NURSEBEKA.
--- NOTE | 2023-02-06 15:48 | NUR ---
PT. INTUBATED BY ABDELRAHMAN GIL FOR AIRWAY PROTECTION WITH 7.5 ET TUBE SECURED @ 22 CM LIPLINE. CO2 DETECTOR CHANGED TO YELLOW COLOR POST INTUBATION. BREATH SOUNDS CLEAR BILATERAL WITH SYMMETRICAL CHEST RISE POST INTUBATION. VENT SETTINGS BELOW PER DR. LLOYD: AC 18 VT 450ML FIO2 100% PEEP +5 VENT PLUGGED INTO RED OUTLET WITH ALARMS ON AND FUNCTIONING. BVM @ BEDSIDE Addendum: 02/06/23 at 1611 by COOPER CASTRO RT Amended: Links added.
--- NOTE | 2023-02-06 16:07 | NUR ---
VP BUSINESS DEVELOPMENT Note Patient is transferred from [facility] to ICU for increased work of breathing at 15:30. secured entrance monitor shwoed SR 90/min, MAP>65mmHg, SpO2 95% with 3L oxygen via NC. GCS [id number]. In order to protect airway, RSI was done with 10mcg of etomidate and 70mg of rocuronium administered(K4.4), administered at 15:44. Patient was subsequently intubated at 15:48, with ETT size 7.5, marking at 22cm. Dr. Knox assessed the CXR himself and ordered advancing the tube to 24cm. Done as ordered and another CXR was done. Patient was ventilated with AC mode, rate 18/min, TV 450mL, PEEP 5, SpO2 100% with FiO2 100%. Will keep monitoring and care.
--- NOTE | 2023-02-06 16:14 | NUR ---
ET TUBE ADJUSTED PUSH IN 2 CM FROM 22 CM TO 24 CM ORDERED. Addendum: 02/06/23 at 1615 by COOPER CASTRO RT Amended: Links added.
[2023-02-06] MEDS: PROPOFOL 100 ML IV PRN ×2 (17:04→21:42)
--- NOTE | 2023-02-06 17:28 | NUR ---
MANAGER PROCESS IMPROVEMENT note Propofol started at 17:00 and titrated to 20mcg/kg/min. Vivian sedation score is 3 now. Restraints are applied.
[2023-02-06] MEDS ORDERED: ROCURONIUM BROMIDE 50 MG/5 ML IV ONE (18:00)
[2023-02-06] MEDS ORDERED: ETOMIDATE 2 MG/ML VIAL IV ONE (18:00)
[2023-02-06 18:12] LABS: ABG BASE EXCESS -7.3 mmol/L; ABG OXYGEN SATURATION 90.7 % (92.0-98.5); ABG PCO2 70.8 mmHg (35.0-45.0); ABG PH 7.117 (7.350-7.450); ABG PO2 66.1 mmHg (75.0-100.0); AaDO2 79.2 mmHg; COHb 1.2 % (0.5-1.5); MetHb 0.1 % (0.0-1.5); O2Hb 89.5 % (94.0-97.0); SITE, ABG Right Radial; VENT MODE, BG 3 LPM NC
[2023-02-06 18:13] LABS: ABG OXYGEN SATURATION 99.4 % (92.0-98.5); ABG PCO2 49.3 mmHg (35.0-45.0); ABG PH 7.211 (7.350-7.450); ABG PO2 356.2 mmHg (75.0-100.0); AaDO2 307.5 mmHg; COHb 0.8 % (0.5-1.5); MetHb 0.6 % (0.0-1.5); PEEP,BG 5 cm H2O; SITE, ABG LEFT ARM; VT, ABG 450 mL
--- NOTE | 2023-02-06 18:19 | NUR ---
fio2 decreased from 100% to 35% per dr. syed Addendum: 02/06/23 at 1819 by COOPER CASTRO RT Amended: Links added.
--- NOTE | 2023-02-06 20:30 | NUR ---
ICU/BILL POSTER INSTALLER RECIEVED REPORT FROM DAY NURSE MICHAEL. PT IS S/P PEG PLACEMENT WITH BLOOD SEEN THROUGH WASH CLOTHES AND ABD. BINDER.WITH WAS CHANGED OUT, TO MONITOR HIS BLEEDING. DR YBARRA CAME BY SHOWED HER THE BLOOD FROM NEW PEG. DR YBARRA SAID OK HOLD HEPARIN FOR NOW, ALSO CHECK D-DIMER FOR BLEEDING AND FIBRINOGEN LEVELS WELL. THIS WAS DONE AND CARRIED OUT.
--- NOTE | 2023-02-06 21:33 | NUR ---
ICU/EXTRAS CASTING DIRECTOR LAB CAME TO DRAW LABS
[2023-02-06 22:21] LABS: D-DIMER > 35.20 mg/L(FEU (0.17-0.50)
[2023-02-06 22:50] LABS: HEMOGLOBIN 6.1 g/dL (13.5-17.5)
--- NOTE | 2023-02-06 23:17 | NUR ---
ICU/MOLD CAPPER CRITICAL LAB VALUES INR GREATER THAN 10 FIBRINOGEN LESS THAN 50 D-DIMER GREATER THAN 35.2 PLT 65, H/H-6.12/08 CALLED RANDLE WHO IS SPECIAL SYSTEMS TECHNICIAN GOT ORDER FOR 3 UNITS PRBC, 2 FFP, 1 PLT, 2 CRYO PLUS VIT K ORDERS WERE RECIEVED AND CARRIED OUT.PT WAS ALREADY TYPE & CROSS FOR BLOOD
[2023-02-07] VITALS (106 sets, daily range): BP systolic 90–151; BP diastolic 55–92
[2023-02-07] MEDS ORDERED: PHYTONADIONE INJ 10 MG/1 ML AMPUL SQ ONE
--- NOTE | 2023-02-07 00:50 | NUR ---
ICU/FURNITURE REPRODUCER VIT K WAS GIVEN SQ IN THE ARM. WILL CONTINUE TO MONITOR THIS PT.
--- NOTE | 2023-02-07 03:18 | NUR ---
ICU/TELEPHONE MECHANIC 1 OF 2 CRYO WAS GIVEN, NOW 1 OF 3 PRBC IS GIVEN. ALSO PT IS TO HAVE VENOUS DOPPLER TO RIGHT ARM R/O DVT.
--- NOTE | 2023-02-07 03:44 | NUR ---
ICU/FURNITURE DESIGNER HEPARIN WAS D/C'D NOW DUE TO THE FACT PT IS CURRENTLY IN D/C'D.
[2023-02-07] MEDS: PROPOFOL 100 ML IV PRN ×3 (05:56→20:50)
--- NOTE | 2023-02-07 06:19 | NUR ---
ICU/ENT NURSE GIVEN ALREADY WAS X2PRBC, X2CRYO FOR THIS PT WHO IS IN DIC. WILL ENDORSE TO DAY SHIFT X1PRBC, X2FFP, X1PLT.
--- NOTE | 2023-02-07 07:00 | NUR ---
RN NOTES RECEIVED PT ON BED, INTUBATED ON SEDATION, DIPRIVAN AT 25MCG/KG/MIN, RUNNING , TOLERATING VENT SETTING WELL, ON TELE SR HR IN 80'S , VASQUEZ DRAINING TO GRAVITY, PT RECEIVING BLOOD TRANSFUSION , TOLERATING WELL, IVF INFUSING AT 75CC/HR, MODERATED AMOUNT OF BLOOD OOZING NOTED A THE PEG SITE, DRESSING APPLIED, CONTINUE TO MONITOR . IV SITES CDI, SR UP x3, CALL LIGHT WITHIN EASY REACH, BED LOCKED AND IN LOWEST POSITION, CONTINUE TO MONITOR .
--- NOTE | 2023-02-07 07:39 | NUR ---
WOUND CARE CONSULT: PT PRESENTS WITH SACRAL DEEP TISSUE INJURY, PRESENT ON ADMISSION. PT NOTED TO HAVE GENERALIZED EDEMA, FRAGILE SKIN WITH AREAS OF SKIN DISCOLORATION. PEG SITE BLEEDING NOTED. INTELLECTUAL PROPERTY COUNSEL AWARE AND HAS GIVEN ORDERS TO NURSING STAFF. DISCUSSED SKIN PROTECTION RECOMMENDATIONS WITH NURSING STAFF. FIRST STEP LOW AIRLOSS MATTRESS IS ON ORDER. MD IN AGREEMENT WITH PLAN OF CARE. Addendum: 02/07/23 at 0742 by PATRICIO TRINIDAD WNDNU Amended: Links added.
[2023-02-07 07:40] LABS: CALCIUM, SERUM 7.8 mg/dL (8.5-10.1); CARBON DIOXIDE 23 mmol/L (21-32); CHLORIDE 103 mmol/L (98-107); CREATININE 1.5 mg/dL (0.6-1.3); GLUCOSE 111 mg/dL (74-106); POTASSIUM 4.8 mmol/L (3.5-5.1); SODIUM SERUM 135 mmol/L (136-145); UREA NITROGEN, BLOOD 49 mg/dL (7-18)
[2023-02-07] MEDS: ENSURE ENLIVE 237 ML LIQUID (VANILLA) PO SCH ×3 (08:00→16:34)
[2023-02-07] MEDS: FOLIC ACID 1 MG TABLET PO SCH (08:01)
[2023-02-07] MEDS: CEFEPIME 2 GM in IV D5W 100 ML IV SCH ×2 (08:33→20:49)
[2023-02-07] MEDS: methylPREDNISolone SOD SUCC 40 MG/ML VIAL IV SCH (08:34)
[2023-02-07] MEDS: PANTOPRAZOLE 40 MG VIAL IV SCH ×2 (08:35→20:49)
[2023-02-07] MEDS: ALBUTEROL FS 2.5 MG/3 ML VIAL.NEB NEB SCH ×3 (09:00→19:47)
[2023-02-07] MEDS: IPRATROPIUM NEB FS 0.5 MG/2.5 ML AMPUL.NEB NEB SCH ×3 (09:00→19:47)
[2023-02-07] MEDS: IV D5W 1,000 ML IV PRN ×2 (09:41→22:45)
[2023-02-07 14:05] LABS: BASOPHILS % (AUTO) 0.2 % (0.0-2.0); EOSINOPHILS % (AUTO) 0.1 % (0.0-6.0); HEMATOCRIT 23 % (39-51); HEMOGLOBIN 8.1 g/dL (13.5-17.5); LYMPHOCYTES # (AUTO) 1.2 K/uL (0.8-4.8); LYMPHOCYTES % (AUTO) 13.6 % (20.0-44.0); MEAN CORPUSCULAR HGB CONC 35 g/dl (31.0-36.0); MEAN CORPUSCULAR VOLUME 92 fL (80-96); MONOCYTES # (AUTO) 0.2 K/uL (0.1-1.30); MONOCYTES % (AUTO) 2.7 % (2.0-12.0); NEUTROPHILS # (AUTO) 7.5 K/uL (1.8-8.9); NEUTROPHILS % (AUTO) 83.4 % (43.0-81.0); RED BLOOD CELL COUNT(AUTO) 2.54 MIL/uL (4.5-6.0)
[2023-02-07 14:11] LABS: PLATELET COUNT (AUTO) 40 K/uL (150-450)
--- NOTE | 2023-02-07 14:30 | NUR ---
RN NOTES DR YBARRA NOTIFIED REGARDING PLT 40 , NO NEW ORDER RECEIVED .
[2023-02-07 14:59] LABS: D-DIMER 35.2 mg/L(FEU (0.17-0.50)
--- NOTE | 2023-02-07 16:37 | NUR ---
END OF SHIFT NOTE: COMPLETED 1 UNIT PRBc, 2 UNITS OF FFP AND 1 UNIT OF PLATELETS. REPEATED CBC AND BLOOD WORK DONE AFTER. MD DR. CHRISTIAN MADEA AWARE OF RESULT. HAD TOTAL OF 2 DARK BURGUNDY STOOLS IN SHIFT. NOTED COFFEE GROUND G-TUBE RESIDUAL, TO LOW INTERMITTENT WALL SUCTION, OUTPUT 50ML IN SHIFT. TOLERATED VENTILATOR SETTING WELL WITH FiO2 35%. Addendum: 02/07/23 at 1648 by HARDIK HOLLAND RN END OF SHIFT NOTE: COMPLETED 1 UNIT PRBc, 2 UNITS OF FFP AND 1 UNIT OF PLATELETS. REPEATED CBC AND BLOOD WORK DONE AFTER. MD DR. CHRISTIAN MADE AWARE OF RESULT. HAD TOTAL OF 2 DARK BURGUNDY STOOLS IN SHIFT. NOTED COFFEE GROUND G-TUBE RESIDUAL, TO LOW INTERMITTENT WALL SUCTION, OUTPUT 50ML IN SHIFT. TOLERATED VENTILATOR SETTING WELL WITH FiO2 35%. Addendum: 02/07/23 at 1654 by HARDIK HOLLAND RN RN NOTE: COMPLETED 1 UNIT PRBc, 2 UNITS OF FFP AND 1 UNIT OF PLATELETS. REPEATED CBC AND BLOOD WORK DONE AFTER. MD DR. CHRISTIAN MADEA AWARE OF RESULT. HAD TOTAL OF 2 DARK BURGUNDY STOOLS IN SHIFT. NOTED COFFEE GROUND G-TUBE RESIDUAL, TO LOW INTERMITTENT WALL SUCTION, OUTPUT 50ML IN SHIFT. TOLERATED VENTILATOR SETTING WELL WITH FiO2 35%. Addendum: 02/07/23 at 1747 by HARDIK HOLLAND RN RN NOTE: COMPLETED 1 UNIT PRBc, 2 UNITS OF FFP AND 1 UNIT OF PLATELETS. REPEATED CBC AND BLOOD WORK DONE AFTER. MD DR. CHRISTIAN MADE AWARE OF RESULT. HAD TOTAL OF 2 DARK BURGUNDY STOOLS IN SHIFT. NOTED COFFEE GROUND G-TUBE RESIDUAL, TO LOW INTERMITTENT WALL SUCTION, OUTPUT 100ML IN SHIFT. TOLERATED VENTILATOR SETTING WELL WITH FiO2 35% Addendum: 02/07/23 at 1830 by HARDIK HOLLAND RN CORRECTION: THE TOTAL AMOUNT FROM THE GASTRIC DRAINAGE , DARK COFFEE GROUND IS 150ML IN SHIFT. DR. CHRISTIAN WAS NOTIFIED.
[2023-02-07 18:31] LABS: EOSINOPHILS % (AUTO) 0.2 % (0.0-6.0); MONOCYTES # (AUTO) 0.2 K/uL (0.1-1.30); WHITE BLOOD COUNT (AUTO) 8.6 K/uL (4.3-11.0)
[2023-02-07 18:38] LABS: BAND % (MANUAL) 11 % (0.0-5.0); LYMPHOCYTES % (MANUAL) 11 % (16-48); METAMYELOCYTES % 4 % (0-0); MYELOCYTES % 2 % (0-0); NEUTROPHILS % (MANUAL) 71 (42-76); REACTIVE LYMPHOCYTES 1 % (0-0)
[2023-02-07 19:18] LABS: BASOPHILS % (AUTO) 0.1 % (0.0-2.0); HEMATOCRIT 21 % (39-51); HEMOGLOBIN 7.6 g/dL (13.5-17.5); LYMPHOCYTES % (AUTO) 12.2 % (20.0-44.0); MEAN CORPUSCULAR HGB CONC 36 g/dl (31.0-36.0); MEAN CORPUSCULAR VOLUME 91 fL (80-96); NEUTROPHILS # (AUTO) 7.4 K/uL (1.8-8.9); NEUTROPHILS % (AUTO) 85.5 % (43.0-81.0); RED BLOOD CELL COUNT(AUTO) 2.34 MIL/uL (4.5-6.0)
--- NOTE | 2023-02-07 19:59 | NUR ---
INSTRUMENTAL MUSIC TEACHER OPENING NOTE PT RECEIVED IN BED, SEDATED; PT MOVES BUE IN RESPONSE TO PAIN ALONG WITH FACIAL GRIMACING. PERRLA. PT WITH ETT SIZE 7.5, MARKED AT 24 CM AT THE LIP; AC 18, TV 450, FIO2 35%, PEEP 5 WITH CURRENT O2SAT OF 95%; NO S/S OF RESP DISTRESS, NO SOB, NON-LABORED AND EQUAL BREATHING. PT ATTACHED TO BEDSIDE MONITOR, SR WITH HR OF 76. VASQUEZ INTACT AND PATENT, DRAINING CLEAR AND YELLOW URINE. GT ATTACHED TO LIS WITH COFFEE GROUND COLOR. BILATERAL SOFT WRIST RESTRAINTS IN PLACE; NO SIGNS OF IMPAIRED SKIN OR CIRCULATION; WILL PROVIDE PT WITH RELEASE OF RESTRAINTS AND HYGIENE. IV ACCESS ON LILI MIDLINE, LEFT WRIST 20G, AND LEJ 22G, INTACT AND PATENT, FLUSHES EASILY WITH NO RESISTANCE; PROPOFOL AT 20 MCG/KG/MIN AND D5W AT 75 ML/HR. BED IN LOWEST POSITION, CALL LIGHT WITHIN REACH, SIDE RAILS UP X3. WILL CONTINUE TO MONITOR THROUGHOUT THE NIGHT.
[2023-02-07 21:01] LABS: PLATELET COUNT (AUTO) 26 K/uL (150-450)
--- NOTE | 2023-02-07 21:16 | NUR ---
RN NOTE RECEIVED CRITICAL FROM LAB, PLTS 28 WITH RECHECK RESULT OF 26. DR. YBARRA INFORMED WITH ORDER FOR 1 UNIT PLTS TO BE TRANSFUSED AFTER CRYO.
--- NOTE | 2023-02-07 21:50 | NUR ---
RN NOTE 1ST BAG OF CRYO STARTED AT THIS TIME. VSS: TEMP 97.0, BP 115/66, HR 76, 95% O2SAT, RR 25. WILL CONTINUE TO MONITOR.
--- NOTE | 2023-02-07 22:31 | NUR ---
RN NOTE 1ST BAG OF CRYO FINISHED AT THIS TIME, TOLERATED WELL WITH THE FOLLOWING POST-TRANSFUSION VS: TEMP 97.3, 105/61, HR 78, 95% O2SAT ,RR 23
--- NOTE | 2023-02-07 23:44 | NUR ---
RN NOTE 2ND BAG OF CRYO STARTED WITH PRE-VS FOLLOWS: TEMP 97.1, BP 107/66, HR 77, 95% O2SAT, RR 25. WILL CONTINUE TO MONITOR
[2023-02-08] VITALS (69 sets, daily range): BP systolic 94–129; BP diastolic 44–76
[2023-02-08 00:04] LABS: ABG BASE EXCESS -4.3 mmol/L; ABG OXYGEN SATURATION 94.2 % (92.0-98.5); ABG PCO2 37.5 mmHg (35.0-45.0); ABG PO2 76.2 mmHg (75.0-100.0); AaDO2 129.8 mmHg; COHb 0.9 % (0.5-1.5); MetHb 0.3 % (0.0-1.5); O2Hb 93.1 % (94.0-97.0); SITE, ABG Right Femoral; VENT MODE, BG ac18 450 +5 35%
--- NOTE | 2023-02-08 00:20 | NUR ---
RN NOTE 2ND BAG OF CRYO COMPLETED AT THIS TIME WITH THE FOLLOWING POST-TRANSFUSION VS: TEMP 97.1, BP 113/63, HR 76, 96% O2SAT ,RR 18. OVERALL, PT TOLERATED TOTAL OF 10UNITS OF CRYO WELL WITH NO SIGNS OF ADVERSE REACTIONS.
--- NOTE | 2023-02-08 02:39 | NUR ---
RN NOTE FOLLOWED UP WITH BLOODBANK; 1 UNIT OF PLT NOT AVAILABLE YET
[2023-02-08 05:15] LABS: BASOPHILS % (AUTO) 0.3 % (0.0-2.0); EOSINOPHILS % (AUTO) 0.2 % (0.0-6.0); HEMATOCRIT 21 % (39-51); HEMOGLOBIN 7.1 g/dL (13.5-17.5); LYMPHOCYTES # (AUTO) 1.1 K/uL (0.8-4.8); LYMPHOCYTES % (AUTO) 12.5 % (20.0-44.0); MEAN CORPUSCULAR HGB CONC 34 g/dl (31.0-36.0); MEAN CORPUSCULAR VOLUME 93 fL (80-96); MONOCYTES # (AUTO) 0.2 K/uL (0.1-1.30); MONOCYTES % (AUTO) 2.6 % (2.0-12.0); NEUTROPHILS # (AUTO) 7.4 K/uL (1.8-8.9); NEUTROPHILS % (AUTO) 84.4 % (43.0-81.0); RED BLOOD CELL COUNT(AUTO) 2.29 MIL/uL (4.5-6.0); WHITE BLOOD COUNT (AUTO) 8.8 K/uL (4.3-11.0)
[2023-02-08] MEDS: PROPOFOL 100 ML IV PRN ×3 (05:18→23:30)
[2023-02-08 05:30] LABS: CALCIUM, SERUM 7.3 mg/dL (8.5-10.1); CARBON DIOXIDE 23 mmol/L (21-32); CHLORIDE 103 mmol/L (98-107); CREATININE 1.4 mg/dL (0.6-1.3); GLUCOSE 123 mg/dL (74-106); POTASSIUM 4.6 mmol/L (3.5-5.1); SODIUM SERUM 134 mmol/L (136-145); UREA NITROGEN, BLOOD 58 mg/dL (7-18)
[2023-02-08 05:33] LABS: URIC ACID 7.2 mg/dL (2.6-7.2)
[2023-02-08 05:41] LABS: D-DIMER 35.2 mg/L(FEU (0.17-0.50)
[2023-02-08 06:02] LABS: PLATELET COUNT (AUTO) 24 K/uL (150-450)
--- NOTE | 2023-02-08 06:48 | NUR ---
RN NOTE 1 UNIT OF PLATELET STARTED AT THIS TIME WITH THE FOLLOWING PRE-TRANSFUSION VS: TEMP 96.4, BP 98/61, HR 75, 94% O2SAT, RR 21. WILL CONTINUE TO MONITOR
--- NOTE | 2023-02-08 07:05 | NUR ---
RN OPENING NOTES RECEIVED REPORT FROM [facility] . PATIENT REMAINS IN BED. CONTINUES TO BE ON SAME VENT SETTINGS; TOLERATING WELL WITH O2SAT RANGING FROM 94%-100% WITH NO S/S OF RESP DISTRESS, NO SOB OR COUGH, NON-LABORED AND EQUAL BREATHING. ATTACHED TO BEDSIDE MONITOR, SINUS RHYTHM. VASQUEZ INTACT AND PATENT, DRAINING CLEAR AND YELLOW URINE. PEG CONTINUES TO BE ON LOW INTERMITTENT SUCTION WITH COFFEE GROUND DRAINAGE. LILI MIDLINE, LEFT WRIST AND LFA INTACT AND PATENT, FLUSHES EASILY WITH NO RESISTANCE; D5W AT 75 ML/HR, PROPOFOL AT 20 MCG/KG/MIN, AND PLATELETS INFUSING AT 100 ML/HR. BED IN LOWEST POSITION, CALL LIGHT WITHIN REACH, SIDE RAILS UP X3. WILL CONTINUE PLAN OF CARE AND ANTICIPATE NEEDS.
--- NOTE | 2023-02-08 07:11 | NUR ---
LABEL DESIGNER CLOSING NOTE PT REMAINS IN BED, CALM. CONTINUES TO BE ON SAME VENT SETTINGS; TOLERATING WELL WITH O2SAT RANGING FROM 94%-100% THROUGHOUT THE NIGHT WITH NO S/S OF RESP DISTRESS, NO SOB OR COUGH, NON-LABORED AND EQUAL BREATHING. ATTACHED TO BEDSIDE MONITOR, SR. VASQUEZ INTACT AND PATENT, DRAINING CLEAR AND YELLOW URINE. PEG CONTINUES TO BE ON LOW INTERMITTENT SUCTION WITH COFFEE GROUND DRAINAGE. LILI MIDLINE, LEFT WRIST AND LFA INTACT AND PATENT, FLUSHES EASILY WITH NO RESISTANCE; D5W AT 75 ML/HR, PROPOFOL AT 20 MCG/KG/MIN, AND PLATELETS INFUSING AT 100 ML/HR. ALL DUE MEDS ADMINISTERED DURING THE NIGHT. BED IN LOWEST POSITION, CALL LIGHT WITHIN REACH, SIDE RAILS UP X3. WILL ENDORSE TO DAYSHIFT NURSE TO CONTINUE CARE.
[2023-02-08 07:40] LABS: BAND % (MANUAL) 12 % (0.0-5.0); LYMPHOCYTES % (MANUAL) 10 % (16-48); METAMYELOCYTES % 3 % (0-0); NEUTROPHILS % (MANUAL) 71 (42-76)
[2023-02-08 07:41] LABS: MYELOCYTES % 4 % (0-0)
[2023-02-08] MEDS: ENSURE ENLIVE 237 ML LIQUID (VANILLA) PO SCH ×3 (07:46→16:15)
--- NOTE | 2023-02-08 07:54 | NUR ---
PATIENT COVERED IN WARM BLANKET FOR TEMPERATURE 96.3 DEGREES FAHRENHEIT.
[2023-02-08] MEDS: FOLIC ACID 1 MG TABLET PO SCH (08:37)
[2023-02-08] MEDS: IPRATROPIUM NEB FS 0.5 MG/2.5 ML AMPUL.NEB NEB SCH ×3 (08:38→19:25)
[2023-02-08] MEDS: ALBUTEROL FS 2.5 MG/3 ML VIAL.NEB NEB SCH ×3 (08:38→19:25)
[2023-02-08] MEDS: PANTOPRAZOLE 40 MG VIAL IV SCH ×2 (08:38→20:30)
[2023-02-08] MEDS: methylPREDNISolone SOD SUCC 40 MG/ML VIAL IV SCH (08:39)
[2023-02-08] MEDS: CEFEPIME 2 GM in IV D5W 100 ML IV SCH ×2 (08:39→20:30)
--- NOTE | 2023-02-08 10:32 | NUR ---
NURSE PRACTITIONER JOHN CHRISTIAN AT BEDSIDE. RECEIVED VERBAL ORDER FOR DIETARY CONSULT TO BEING TUBE FEEDING. PER ANAHI, ONCE TUBE FEEDING ORDERED AND BLEEDING FROM PEG SITE CEASED; INITIATE TUBE FEEDING AT RATE OF 5 MLS/HR FOR 12 HOURS THEN INCREASE TO 10 MLS/HR, IF TOLERATED. ANAHI TO ALSO DISCUSS CODE STATUS WITH PATIENTS DPOA.
[2023-02-08] MEDS: HYDROCORTISONE SOD SUCCINATE 100 MG/2 ML VIAL IV SCH ×3 (10:39→20:30)
[2023-02-08] MEDS ORDERED: CELLULOSE,OXIDIZED 1 EACH EACH MC STA (10:44)
[2023-02-08] MEDS ORDERED: SILVER NITRATE APPLICATOR 1 EA BOX TP ONE (10:44)
[2023-02-08] MEDS: IV D5W 1,000 ML IV PRN ×2 (11:50→23:23)
--- NOTE | 2023-02-08 12:31 | NUR ---
TRISTA PIERCE AT BEDSIDE. ASSISTED IN CLEANSING PEG TUBE SITE. OXIDIZED CELLULOSE DRESSING IN PLACE TO CONTROL BLEEDING. PEG SITE REMAINS CONNECTED TO LOW INTERMITTENT SUCTION.
[2023-02-08] MEDS: JEVITY 1.2 CAL 1,000 ML BOTTLE GT PRN (17:50)
--- NOTE | 2023-02-08 18:00 | NUR ---
NO ACTIVE BLEEDING OBSERVED FROM PEG TUBE SITE. PER JOHN CHRISTIAN, TUBE FEEDING STARTED AT RATE OF 5 MLS/HR.
[2023-02-08 18:15] LABS: BASOPHILS % (AUTO) 0.3 % (0.0-2.0); EOSINOPHILS % (AUTO) 0.1 % (0.0-6.0); HEMATOCRIT 21 % (39-51); HEMOGLOBIN 7.1 g/dL (13.5-17.5); LYMPHOCYTES % (AUTO) 12.8 % (20.0-44.0); MEAN CORPUSCULAR HGB CONC 34 g/dl (31.0-36.0); MEAN CORPUSCULAR VOLUME 92 fL (80-96); MONOCYTES # (AUTO) 0.1 K/uL (0.1-1.30); MONOCYTES % (AUTO) 1.7 % (2.0-12.0); NEUTROPHILS # (AUTO) 6.7 K/uL (1.8-8.9); NEUTROPHILS % (AUTO) 85.1 % (43.0-81.0); WHITE BLOOD COUNT (AUTO) 7.9 K/uL (4.3-11.0)
[2023-02-08 18:42] LABS: PLATELET COUNT (AUTO) 28 K/uL (150-450)
--- NOTE | 2023-02-08 19:09 | NUR ---
HAND OFF REPORT GIVEN TO PRINCESS MEDRANO FOR CONTINUATION OF CARE.
--- NOTE | 2023-02-08 19:58 | NUR ---
WATER REGISTRAR OPENING NOTE PT RECEIVED IN BED, SEDATED WITH PROPOFOL. PT WITH ETT SIZE 7.5, MARKED 24 CM AT THE LIP; AC 18, TV 450, FIO2 35, PEEP 5 WITH CURRENT O2SAT OF 96%; NO S/S OF RESP DISTRESS, NO SOB, NON-LABORED AND EQUAL BREATHING, RESPIRATIONS AT 20. PT ATTACHED TO BEDSIDE MONITOR SR WITH HR OF 65. VASQUEZ INTACT AND PATENT, DRAINING CLEAR AND YELLOW URINE. ABDOMINAL BINDER IN PLACE OVER GT SITE WITH NO SIGNS OF ACTIVE BLEEDING. JEVITY AT 5 ML/HR WITH NO RESIDUALS NOTED; WILL CONTINUE TO RUN AT 5 ML/HR UNTIL 0600 ON 02/09 AND WILL INCREASE TO 10 ML/HR AFTERWARDS. LILI MIDLINE, LEFT WRIST 22G, LFA 18G INTACT AND PATENT WITH D5W AT 75 ML/HR AND PROPOFOL AT 25 MCG/KG/MIN. BED IN LOWEST POSITION, CALL LIGHT WITHIN REACH, SIDE RAILS UP X3. WILL CONTINUE TO MONITOR THROUGHOUT THE NIGHT.
[2023-02-08 20:23] LABS: BAND % (MANUAL) 9 % (0.0-5.0); LYMPHOCYTES % (MANUAL) 12 % (16-48); MONOCYTES % (MANUAL) 2 % (0-11.0); NEUTROPHILS % (MANUAL) 77 (42-76)
[2023-02-09] VITALS (81 sets, daily range): BP systolic 81–153; BP diastolic 48–78
--- NOTE | 2023-02-09 01:50 | NUR ---
RN NOTE PT NOTED TO HAVE RECTAL TEMPERATURE OF 92.6. DARIAN HUGGER APPLIED WITH AN ACTIVE ORDER IN PLACE. WILL CONTINUE TO MONITOR
[2023-02-09 04:18] LABS: BASOPHILS % (AUTO) 0.2 % (0.0-2.0); EOSINOPHILS % (AUTO) 0.2 % (0.0-6.0); HEMATOCRIT 21 % (39-51); HEMOGLOBIN 7.1 g/dL (13.5-17.5); LYMPHOCYTES % (AUTO) 12.2 % (20.0-44.0); MEAN CORPUSCULAR HGB CONC 34 g/dl (31.0-36.0); MEAN CORPUSCULAR VOLUME 92 fL (80-96); MONOCYTES # (AUTO) 0.1 K/uL (0.1-1.30); MONOCYTES % (AUTO) 1.9 % (2.0-12.0); NEUTROPHILS # (AUTO) 6.7 K/uL (1.8-8.9); NEUTROPHILS % (AUTO) 85.5 % (43.0-81.0); RED BLOOD CELL COUNT(AUTO) 2.28 MIL/uL (4.5-6.0); WHITE BLOOD COUNT (AUTO) 7.8 K/uL (4.3-11.0)
[2023-02-09 04:22] LABS: CALCIUM, SERUM 7.1 mg/dL (8.5-10.1); CARBON DIOXIDE 22 mmol/L (21-32); CHLORIDE 99 mmol/L (98-107); CREATININE 1.3 mg/dL (0.6-1.3); GLUCOSE 139 mg/dL (74-106); POTASSIUM 4.4 mmol/L (3.5-5.1); SODIUM SERUM 129 mmol/L (136-145); UREA NITROGEN, BLOOD 55 mg/dL (7-18)
[2023-02-09 04:24] LABS: PLATELET COUNT (AUTO) 24 K/uL (150-450)
[2023-02-09] MEDS: HYDROCORTISONE SOD SUCCINATE 100 MG/2 ML VIAL IV SCH ×3 (04:30→21:24)
[2023-02-09 04:36] LABS: D-DIMER 35.2 mg/L(FEU (0.17-0.50)
--- NOTE | 2023-02-09 05:30 | NUR ---
RN NOTE PT'S BP NOTED TO HAVE DROPPED IN HIGH 80S WITH MAP STILL >65. WILL CONTINUE TO MONITOR AND ASSESS FOR NEED TO INITIATE LEVO.
--- NOTE | 2023-02-09 05:37 | NUR ---
RN NOTE RECEIVED CRITICAL FROM LAB. PLTS 24, NOTED TO BE TRENDING DOWN FROM 28. NO SIGNS OF ACTIVE BLEEDING FROM GT SITE. DR. MICHELE INFORMED. AWAITING RESPONSE. Addendum: 02/09/23 at 0622 by PRINCESS JUVENCIO MEDRANO NO NEW ORDERS PER RYNE
[2023-02-09] MEDS ORDERED: NOREPINEPHRINE 4 MG/4 ML AMPUL IV ONE (06:07)
[2023-02-09] MEDS: NOREPINEPHRINE 8 MG in IV NS 0.9% 242 ML IV PRN ×2 (06:12→21:25)
--- NOTE | 2023-02-09 06:21 | NUR ---
RN NOTE LEVO 8 MG STARTED AT THIS TIME WITH MOST RECENT BP OF 83/55 MAP 64, HR 86.
--- NOTE | 2023-02-09 06:36 | NUR ---
DELIVERY ASSOCIATE CLOSING NOTE PT REMAINS IN BED, SEDATED, OPENS EYES OCCASSIONALLY. CONTINUES ON SAME VENT SETTINGS, TOLERATING WELL WITH O2SAT RANGING FROM 91%-99% WITH NO S/S OF RESP DISTRESS, NO SOB, NON-LABORED AND EQUAL BREATHING. ATTACHED TO BEDSIDE MONITOR, SR WITH HR RANGING FROM 65-90. VASQUEZ INTACT AND PATENT, DRAINING CLEAR AND YELLOW URINE. BILATERAL SOFT WRIST RESTRAINTS REMAIN IN PLACE WITH NO SIGNS OF IMPAIRED SKIN OR CIRCULATION; PT PROVIDED WITH RELEASE OF RESTRAINTS AND HYGIENE. JEVITY NOW AT 10 ML/HR WITH NO RESIDUALS; PT TOLERATED GTF WELL. LILI MIDLINE INTACT AND PATENT WITH LEVO NOW AT 0.09 MCG/KG/MIN, PROPOFOL AT 20 MCG/KG/MIN; D5W INFUSING AT 75 ML/HR ON LEFT WRIST 22G. WOUNDS CLEANSED AND NEW MEPILEX APPLIED. ALL DUE MEDS ADMINISTERED DURING THE NIGHT. BED IN LOWEST POSITION, CALL LIGHT WITHIN REACH, SIDE RAILS UP X3. WILL ENDORSE TO DAYSHIFT NURSE TO CONTINUE CARE.
--- NOTE | 2023-02-09 07:05 | NUR ---
RN NOTES RECEIVED PT ON BED, INTUBATED ON SEDATION, DIPRIVAN AT 20 MCG/KG/MIN, RUNNING , TOLERATING VENT SETTING WELL, ON TELE SR HR IN 90'S , VASQUEZ DRAINING TO GRAVITY, IVF INFUSING AT 75CC/HR, LEVO AT 0.08 MCG/KG/MIN RUNNING FOR BP SUPPORT, TF AT 10CC/HR RUNNING , NO RESIDUAL NOTED , IV SITES CDI, SR UP x3, CALL LIGHT WITHIN EASY REACH, BED LOCKED AND IN LOWEST POSITION, CONTINUE TO MONITOR .
[2023-02-09] MEDS: ALBUTEROL FS 2.5 MG/3 ML VIAL.NEB NEB SCH ×3 (07:35→19:26)
[2023-02-09] MEDS: IPRATROPIUM NEB FS 0.5 MG/2.5 ML AMPUL.NEB NEB SCH ×3 (07:35→19:26)
[2023-02-09] MEDS: ENSURE ENLIVE 237 ML LIQUID (VANILLA) PO SCH ×3 (08:00→17:00)
[2023-02-09] MEDS: PANTOPRAZOLE 40 MG VIAL IV SCH ×2 (08:12→21:24)
[2023-02-09] MEDS: FOLIC ACID 1 MG TABLET PO SCH (08:12)
[2023-02-09] MEDS: methylPREDNISolone SOD SUCC 40 MG/ML VIAL IV SCH (08:12)
[2023-02-09] MEDS: CEFEPIME 2 GM in IV D5W 100 ML IV SCH ×2 (08:15→21:24)
[2023-02-09 11:12] LABS: BAND % (MANUAL) 6 % (0.0-5.0); BASOPHILS % (MANUAL) 0 % (0.0-2.0); EOSINOPHILS % (MANUAL) 0 % (0-4); LYMPHOCYTES % (MANUAL) 19 % (16-48); MONOCYTES % (MANUAL) 1 % (0-11.0); NEUTROPHILS % (MANUAL) 74 (42-76)
[2023-02-09] MEDS: PROPOFOL 100 ML IV PRN ×2 (11:52→21:25)
--- NOTE | 2023-02-09 12:00 | NUR ---
RN NOTES PT ON LEVO AT .02 MCG/KG/MIN, CONTINUE TO TITRATE
[2023-02-09] MEDS: IV D5W 1,000 ML IV PRN (14:08)
--- NOTE | 2023-02-09 16:52 | NUR ---
RN NOTES ONE SMALL BLACK LOOSE STOOL NOTED,
--- NOTE | 2023-02-09 19:00 | NUR ---
RN NOTES PT REMAINS INTUBATED AND SEDATED, ON LEVO AT 0.02 MCG/KG/MIN, TOLERATING TF AT 20CC/HR WELL, NO RESIDUAL NOTED, WILL ENDORSE TO REAL ESTATE LEASING MANAGER NURSE FOR CONTINUITY OF CARE
--- NOTE | 2023-02-09 19:45 | NUR ---
ICU/WEATHERIZATION TECHNICIAN RECIEVED REPORT FROM DAY NURSE. SEE FLOWSHEET FOR ASSESSMENT. SEE IV SPREAD SHEET FOR IV'S AND TITRATION. PT WAS TURNED AND REPOSIONED FOR COMFORT AND CARE.
[2023-02-10] VITALS (93 sets, daily range): BP systolic 84–160; BP diastolic 48–74
[2023-02-10] MEDS: IV D5W 1,000 ML IV PRN ×2 (03:55→15:36)
--- NOTE | 2023-02-10 04:30 | NUR ---
ICU/PR MANAGER INCREASED FEEDING TO 35ML/HR FOR STABLE G/TUBE FEEDING. WILL MONITOR THE FEEDING AND RESIDUALS.
[2023-02-10 05:30] LABS: BASOPHILS % (AUTO) 0.2 % (0.0-2.0); LYMPHOCYTES # (AUTO) 1.5 K/uL (0.8-4.8); LYMPHOCYTES % (AUTO) 13.2 % (20.0-44.0); MEAN CORPUSCULAR HGB CONC 34 g/dl (31.0-36.0); MEAN CORPUSCULAR VOLUME 92 fL (80-96); MONOCYTES # (AUTO) 0.4 K/uL (0.1-1.30); MONOCYTES % (AUTO) 3.3 % (2.0-12.0); NEUTROPHILS # (AUTO) 9.7 K/uL (1.8-8.9); NEUTROPHILS % (AUTO) 83.3 % (43.0-81.0); RED BLOOD CELL COUNT(AUTO) 2.21 MIL/uL (4.5-6.0); WHITE BLOOD COUNT (AUTO) 11.6 K/uL (4.3-11.0)
[2023-02-10 05:33] LABS: HEMATOCRIT 20 % (39-51); HEMOGLOBIN 6.8 g/dL (13.5-17.5); PLATELET COUNT (AUTO) 42 K/uL (150-450)
[2023-02-10 05:37] LABS: CARBON DIOXIDE 22 mmol/L (21-32); CHLORIDE 97 mmol/L (98-107); CREATININE 2.1 mg/dL (0.6-1.3); GLUCOSE 132 mg/dL (74-106); POTASSIUM 4.9 mmol/L (3.5-5.1); SODIUM SERUM 127 mmol/L (136-145); UREA NITROGEN, BLOOD 67 mg/dL (7-18)
[2023-02-10] MEDS: HYDROCORTISONE SOD SUCCINATE 100 MG/2 ML VIAL IV SCH ×3 (05:37→21:34)
[2023-02-10] MEDS: PROPOFOL 100 ML IV PRN (05:45)
[2023-02-10 05:53] LABS: D-DIMER 35.2 mg/L(FEU (0.17-0.50)
--- NOTE | 2023-02-10 07:05 | NUR ---
RN NOTES RECEIVED PT ON BED, INTUBATED ON SEDATION, DIPRIVAN AT 20 MCG/KG/MIN, RUNNING , TOLERATING VENT SETTING WELL, ON TELE SR HR IN 70'S , VASQUEZ DRAINING TO GRAVITY, IVF INFUSING AT 75CC/HR, LEVO AT 0.04 MCG/KG/MIN RUNNING FOR BP SUPPORT, TF AT 35 CC/HR RUNNING , NO RESIDUAL NOTED , IV SITES CDI, SR UP x3, CALL LIGHT WITHIN EASY REACH, BED LOCKED AND IN LOWEST POSITION, CONTINUE TO MONITOR .
[2023-02-10] MEDS: IPRATROPIUM NEB FS 0.5 MG/2.5 ML AMPUL.NEB NEB SCH ×3 (07:35→19:35)
[2023-02-10] MEDS: ALBUTEROL FS 2.5 MG/3 ML VIAL.NEB NEB SCH ×3 (07:35→19:35)
[2023-02-10] MEDS: ENSURE ENLIVE 237 ML LIQUID (VANILLA) PO SCH ×3 (08:00→16:32)
[2023-02-10] MEDS: CEFEPIME 2 GM in IV D5W 100 ML IV SCH ×2 (08:23→21:00)
[2023-02-10] MEDS: methylPREDNISolone SOD SUCC 40 MG/ML VIAL IV SCH (08:24)
[2023-02-10] MEDS: PANTOPRAZOLE 40 MG VIAL IV SCH ×2 (08:24→21:34)
[2023-02-10] MEDS: FOLIC ACID 1 MG TABLET PO SCH (08:24)
[2023-02-10 10:18] LABS: BAND % (MANUAL) 10 % (0.0-5.0); LYMPHOCYTES % (MANUAL) 18 % (16-48); MONOCYTES % (MANUAL) 3 % (0-11.0); NEUTROPHILS % (MANUAL) 69 (42-76)
--- NOTE | 2023-02-10 16:00 | NUR ---
RN NOTES MODERATED AMOUNT OF DARK LOOSE BLOODY STOOL NOTED, CONTINUE TO MONITOR .
--- NOTE | 2023-02-10 18:35 | NUR ---
RN NOTES PT REMAINS INTUBATED AND SEDATED, ON LEVO AT 0.04 MCG/KG/MIN, TOLERATING TF AT 40CC/HR WELL, NO RESIDUAL NOTED, WILL ENDORSE TO MANAGER MECHANICAL MAINTENANCE NURSE FOR CONTINUITY OF CARE
[2023-02-10] MEDS: JEVITY 1.2 CAL 1,000 ML BOTTLE GT PRN (21:36)
[2023-02-10] MEDS: NOREPINEPHRINE 8 MG in IV NS 0.9% 242 ML IV PRN (21:36)
[2023-02-11] VITALS (82 sets, daily range): BP systolic 73–176; BP diastolic 32–81
[2023-02-11 05:08] LABS: BASOPHILS % (AUTO) 0.5 % (0.0-2.0); EOSINOPHILS % (AUTO) 0.2 % (0.0-6.0); HEMATOCRIT 24 % (39-51); HEMOGLOBIN 8.2 g/dL (13.5-17.5); LYMPHOCYTES # (AUTO) 1.4 K/uL (0.8-4.8); LYMPHOCYTES % (AUTO) 14.5 % (20.0-44.0); MEAN CORPUSCULAR HGB CONC 34 g/dl (31.0-36.0); MEAN CORPUSCULAR VOLUME 91 fL (80-96); MONOCYTES # (AUTO) 0.2 K/uL (0.1-1.30); MONOCYTES % (AUTO) 2.5 % (2.0-12.0); NEUTROPHILS # (AUTO) 7.9 K/uL (1.8-8.9); NEUTROPHILS % (AUTO) 82.3 % (43.0-81.0); RED BLOOD CELL COUNT(AUTO) 2.68 MIL/uL (4.5-6.0); WHITE BLOOD COUNT (AUTO) 9.6 K/uL (4.3-11.0)
[2023-02-11 05:19] LABS: PLATELET COUNT (AUTO) 28 K/uL (150-450)
[2023-02-11 05:20] LABS: CALCIUM, SERUM 6.7 mg/dL (8.5-10.1); CARBON DIOXIDE 20 mmol/L (21-32); CHLORIDE 93 mmol/L (98-107); CREATININE 2.7 mg/dL (0.6-1.3); GLUCOSE 163 mg/dL (74-106); POTASSIUM 4.4 mmol/L (3.5-5.1); SODIUM SERUM 125 mmol/L (136-145)
[2023-02-11 05:22] LABS: UREA NITROGEN, BLOOD 83 mg/dL (7-18)
[2023-02-11] MEDS: HYDROCORTISONE SOD SUCCINATE 100 MG/2 ML VIAL IV SCH ×3 (06:28→20:43)
[2023-02-11] MEDS: IV D5W 1,000 ML IV PRN (07:26)
[2023-02-11] MEDS: ALBUTEROL FS 2.5 MG/3 ML VIAL.NEB NEB SCH ×3 (07:35→19:55)
[2023-02-11] MEDS: IPRATROPIUM NEB FS 0.5 MG/2.5 ML AMPUL.NEB NEB SCH ×3 (07:35→19:55)
--- NOTE | 2023-02-11 07:43 | NUR ---
ICU/RN PT RECEIVED IN BED, OBTUNDED. PT INTUBATED ON MECHANICAL VENTILATOR O2 SAT STABLE AT THIS TIME. VASQUEZ CATH IN PLACE. GTUBE IN PLACE WITH ABD BINDER FOR BLEEDING PRECAUTION, JEVITY RUNNING AT 40MLS/HR. LEFT UA MIDLINE AND LEFT FA 18G IN PLACE RUNNING D5W AT 75 MLS/HR AND LEVOPHED AT 0.01MCG/KG/MIN. HEATING BLANKET IN PLACE, PT CORE TEMP 94.7 AT THIS TIME. BED LOCKED AND IN LOWEST POSITION, CALL LIGHT WITHIN REACH, 3 SIDE RAILS UP.
[2023-02-11] MEDS: ENSURE ENLIVE 237 ML LIQUID (VANILLA) PO SCH ×3 (07:46→16:17)
[2023-02-11] MEDS: CEFEPIME 2 GM in IV D5W 100 ML IV SCH ×2 (08:04→20:43)
[2023-02-11] MEDS: methylPREDNISolone SOD SUCC 40 MG/ML VIAL IV SCH (08:14)
[2023-02-11] MEDS: PANTOPRAZOLE 40 MG VIAL IV SCH ×2 (08:14→20:43)
[2023-02-11] MEDS: FOLIC ACID 1 MG TABLET PO SCH (08:15)
[2023-02-11] MEDS: IV NS 0.9% 1,000 ML IV PRN ×3 (08:17→23:57)
--- NOTE | 2023-02-11 08:27 | NUR ---
ICU/RN NO RESIDUAL NOTED. GT FEEDING INCREASED TO 50MLS/HR, GOAL OF 85MLS/HR.
[2023-02-11] MEDS: PROPOFOL 100 ML IV PRN ×2 (08:36→18:45)
--- NOTE | 2023-02-11 08:44 | NUR ---
ICU/RN PT SHOWING SIGNS OF DISCOMFORT, FIGHTING THE VENT. PT PLACED BACK ON PROPOFOL, MUSA CHRISTIAN AWARE.
--- NOTE | 2023-02-11 09:58 | NUR ---
ICU/RN CORE TEMPERATURE 97.5. HEATING BLANKET TURNED OFF.
--- NOTE | 2023-02-11 12:05 | NUR ---
ICU/RN NO RESIDUAL NOTED. TUBE FEEDING INCREASED TO 60MLS/HR.
[2023-02-11 15:31] LABS: D-DIMER 35.2 mg/L(FEU (0.17-0.50)
[2023-02-11 15:45] LABS: BAND % (MANUAL) 3 % (0.0-5.0); LYMPHOCYTES % (MANUAL) 13 % (16-48); METAMYELOCYTES % 3 % (0-0); MONOCYTES % (MANUAL) 2 % (0-11.0); MYELOCYTES % 1 % (0-0); NEUTROPHILS % (MANUAL) 78 (42-76)
--- NOTE | 2023-02-11 16:00 | NUR ---
ICU/RN NO RESIDUAL NOTED, TUBE FEEDING INCREASED TO 70MLS/HR.
--- NOTE | 2023-02-11 19:15 | NUR ---
RN NOTE RECEIVED PT IN BED, SEDATED. ON ET TUBE, MECH VENT SETTINGS WELL ROSSY. NO S/SX OF ACUTE DISTRESS. ATTACHED TO BEDSIDE FILM LABORATORY TECHNICIAN CURRENT READING SR. TEMP 97.1 AT THIS TIME. CURRENTLY INFUSING DIPRIVAN AT 25MCG/KG/MIN, LEVO AT 0.04MCG/KG/MIN, AND NS AT 125ML/HR ON LILI ML. GT IN PLACED, PT ON JEVITY 1.2 CURRENT RATE AT 70ML/HR TO BE INCREASED 5-10ML Q4H/ ROSSY TO REACH GOAL OF 85ML/HR. FC IN PLACED DRAINING CLEAR YELLOW URINE. HOB ELEVATED, SAFETY AND ASPIRATION PRECAUTIONS IMPLEMENTED. WILL CONT POC
--- NOTE | 2023-02-11 19:30 | NUR ---
RN NOTE PT NOTED WITH ACTIVE BLEEDING ON RIGHT ARM ANTECUBITAL AREA FROM PREVIOUS LAB PUNCTURE SITE. R ARM SWELLING STILL NOTED. DARK PURPLISH DISCOLORATION ON RIGHT ARM PRESENT UPON ADMISSION. R RADIAL PULSE PRESENT, REGULAR, HOWEVER WEAK. APPLIED PRESSURE AND SANDBAG IN PLACED. WILL CONT TO MONITOR PT
[2023-02-11] MEDS: NOREPINEPHRINE 8 MG in IV NS 0.9% 242 ML IV PRN (21:03)
--- NOTE | 2023-02-11 21:15 | NUR ---
RN NOTE LEVO DRIP DOSE RATE DECREASED TO 0.02MCG/KG/MIN FROM 0.04MCG/KG/MIN. BP 160/77. WILL TITRATE PER PROTOCOL ORDERED PRN
--- NOTE | 2023-02-11 22:00 | NUR ---
RN NOTE PT NOTED WITH GT RESIDUAL 250ML, FEEDING CONTENT. GT ON HOLD AT THIS TIME. WILL REASSESS PT.
--- NOTE | 2023-02-11 23:00 | NUR ---
RN NOTE PT NOTED WITH DISCOMFORT AND RESPIRATION RATE 38-41/MIN. DIPRIVAN DOSE RATE INCREASED TO 30MCG/KG/MIN FROM 25MCG/KG/MIN PER PROTOCOL ORDERED. VSS.
[2023-02-12] VITALS (42 sets, daily range): BP systolic 90–136; BP diastolic 45–69
--- NOTE | 2023-02-12 02:30 | NUR ---
RN NOTE GT RESIDUAL RECHECKED REMAINS 250ML, FEEDING CONTENT. GT STILL ON HOLD
[2023-02-12] MEDS: PROPOFOL 100 ML IV PRN ×4 (02:41→22:30)
--- NOTE | 2023-02-12 04:30 | NUR ---
RN NOTE GT RESIDUAL 150ML, GT ON HOLD
[2023-02-12 05:24] LABS: BASOPHILS % (AUTO) 0.4 % (0.0-2.0); EOSINOPHILS % (AUTO) 0.1 % (0.0-6.0); HEMATOCRIT 24 % (39-51); HEMOGLOBIN 7.9 g/dL (13.5-17.5); LYMPHOCYTES # (AUTO) 1.1 K/uL (0.8-4.8); MEAN CORPUSCULAR HGB CONC 34 g/dl (31.0-36.0); MEAN CORPUSCULAR VOLUME 92 fL (80-96); MONOCYTES # (AUTO) 0.3 K/uL (0.1-1.30); MONOCYTES % (AUTO) 3.1 % (2.0-12.0); NEUTROPHILS # (AUTO) 8.5 K/uL (1.8-8.9); NEUTROPHILS % (AUTO) 85.4 % (43.0-81.0); RED BLOOD CELL COUNT(AUTO) 2.56 MIL/uL (4.5-6.0); WHITE BLOOD COUNT (AUTO) 9.9 K/uL (4.3-11.0)
[2023-02-12] MEDS: HYDROCORTISONE SOD SUCCINATE 100 MG/2 ML VIAL IV SCH ×3 (05:31→21:06)
[2023-02-12 05:33] LABS: PLATELET COUNT (AUTO) 23 K/uL (150-450)
[2023-02-12 05:45] LABS: ALANINE AMINOTRANSFERASE 29 U/L (12-78); ALKALINE PHOSPHATASE 206 U/L (46-116); ASPARTATE AMINOTRANSFERASE 138 U/L (15-37); BILIRUBIN,TOTAL 0.3 mg/dL (0.2-1.0); CALCIUM, SERUM 6.1 mg/dL (8.5-10.1); CARBON DIOXIDE 17 mmol/L (21-32); CHLORIDE 96 mmol/L (98-107); CREATININE 3.2 mg/dL (0.6-1.3); GLUCOSE 158 mg/dL (74-106); MAGNESIUM 1.8 mg/dL (1.8-2.4); PHOSPHORUS 6.1 mg/dL (2.5-4.9); POTASSIUM 4.6 mmol/L (3.5-5.1); SODIUM SERUM 125 mmol/L (136-145); TOTAL PROTEIN, SERUM 4.6 g/dL (6.4-8.2)
[2023-02-12 05:46] LABS: ALBUMIN 1.4 g/dL (3.4-5.0); UREA NITROGEN, BLOOD 94 mg/dL (7-18)
[2023-02-12 05:50] LABS: D-DIMER 31.89 mg/L(FEU (0.17-0.50)
--- NOTE | 2023-02-12 07:12 | NUR ---
RN NOTE PT VS REMAINS STABLE. REMAINS ON ET TUBE, MECH VENT SETTINGS ORDERED, WELL ROSSY. LEVO DRIP AT DOSE RATE 0.02MCH/KG/MIN, DIPRIVAN DRIP AT 30MCG/KG/MIN, NS AT 125ML/HR ORDERED. REPORT GIVEN TO AM SHIFT NURSE FOR BRENDAN.
--- NOTE | 2023-02-12 07:13 | NUR ---
ICU/RN GT RESIDUAL 60MLS. WILL RESUME GT FEEDING AT LOW RATE OF 15MLS/HR.
[2023-02-12] MEDS: JEVITY 1.2 CAL 1,000 ML BOTTLE GT PRN (07:16)
[2023-02-12] MEDS: IPRATROPIUM NEB FS 0.5 MG/2.5 ML AMPUL.NEB NEB SCH ×3 (07:35→20:16)
[2023-02-12] MEDS: ENSURE ENLIVE 237 ML LIQUID (VANILLA) PO SCH ×3 (07:35→16:40)
[2023-02-12] MEDS: ALBUTEROL FS 2.5 MG/3 ML VIAL.NEB NEB SCH ×3 (07:35→20:16)
[2023-02-12] MEDS: IV NS 0.9% 1,000 ML IV PRN ×2 (07:58→16:37)
[2023-02-12] MEDS: CEFEPIME 2 GM in IV D5W 100 ML IV SCH ×2 (08:02→21:06)
[2023-02-12] MEDS: FOLIC ACID 1 MG TABLET PO SCH (08:02)
[2023-02-12] MEDS: PANTOPRAZOLE 40 MG VIAL IV SCH ×2 (08:02→21:06)
[2023-02-12] MEDS: methylPREDNISolone SOD SUCC 40 MG/ML VIAL IV SCH (08:02)
[2023-02-12 08:25] LABS: BAND % (MANUAL) 10 % (0.0-5.0); LYMPHOCYTES % (MANUAL) 12 % (16-48); METAMYELOCYTES % 1 % (0-0); MONOCYTES % (MANUAL) 4 % (0-11.0); MYELOCYTES % 1 % (0-0); NEUTROPHILS % (MANUAL) 72 (42-76)
--- NOTE | 2023-02-12 08:30 | NUR ---
ICU/RN MUSA CHRISTIAN NOTIFIED TO HIGH RESIDUAL OVERNIGHT. ORDER RECEIVED FOR REGLAN GTUBE BID AND TO RESUME TUBE FEEDING AT 15MLS/HR.
[2023-02-12] MEDS: METOCLOPRAMIDE HCL 10 MG TABLET PO SCH ×2 (08:54→16:40)
--- NOTE | 2023-02-12 17:00 | NUR ---
ICU/RN PT DR. GARIBAY, PT IN NEED FOR HD DUE TO LOW UO AND HIGH BUN AND CREATININE. HD REFUSED BY ROGELIO CRONIN. NOTIFIED.
--- NOTE | 2023-02-12 20:00 | NUR ---
Received patient intubated to mechanical vent with prescribed settings.Sedated on Diprivan gtt at 30 mcg and well tolerated.Dx:COPD Exacerbation,Failure to thrive,Respiratory failure.SR.VS stable. Hemodynamically stable.GT feeding in progress with minimal residual.Aspiration precaution implemented with HOB elevated.FC to gravity no urine output noted at this time.IV Fluid infusing to LILI ML and Diprivan gtt.Turned and repositioned off loading pressure points.Continue monitoring.
[2023-02-13] VITALS (38 sets, daily range): BP systolic 94–155; BP diastolic 46–69
[2023-02-13] MEDS: IV NS 0.9% 1,000 ML IV PRN ×3 (00:26→16:48)
[2023-02-13] MEDS: HYDROCORTISONE SOD SUCCINATE 100 MG/2 ML VIAL IV SCH ×3 (04:27→21:00)
[2023-02-13 05:14] LABS: BASOPHILS % (AUTO) 0.2 % (0.0-2.0); EOSINOPHILS % (AUTO) 0.1 % (0.0-6.0); LYMPHOCYTES # (AUTO) 1.2 K/uL (0.8-4.8); LYMPHOCYTES % (AUTO) 13.6 % (20.0-44.0); MEAN CORPUSCULAR HGB CONC 34 g/dl (31.0-36.0); MEAN CORPUSCULAR VOLUME 91 fL (80-96); MONOCYTES # (AUTO) 0.2 K/uL (0.1-1.30); MONOCYTES % (AUTO) 2.4 % (2.0-12.0); NEUTROPHILS # (AUTO) 7.3 K/uL (1.8-8.9); NEUTROPHILS % (AUTO) 83.7 % (43.0-81.0); WHITE BLOOD COUNT (AUTO) 8.7 K/uL (4.3-11.0)
[2023-02-13 05:32] LABS: CARBON DIOXIDE 14 mmol/L (21-32); CHLORIDE 98 mmol/L (98-107); CREATININE 3.4 mg/dL (0.6-1.3); GLUCOSE 111 mg/dL (74-106); POTASSIUM 4.9 mmol/L (3.5-5.1); SODIUM SERUM 125 mmol/L (136-145)
[2023-02-13] MEDS: PROPOFOL 100 ML IV PRN (05:38)
[2023-02-13 05:39] LABS: HEMATOCRIT 20 % (39-51); HEMOGLOBIN 6.8 g/dL (13.5-17.5)
[2023-02-13 05:40] LABS: PLATELET COUNT (AUTO) 14 K/uL (150-450)
[2023-02-13 05:55] LABS: UREA NITROGEN, BLOOD 105 mg/dL (7-18)
--- NOTE | 2023-02-13 06:26 | NUR ---
Patient resting in no acute distress.Remains intubated and sedated.AM labs resulted H/H 6.8/20. BUN 105.Called to with orders received and carried out.Order to transfuse 1 unit PRBC.For BUN no order. made aware tried to irrigate ventura cath with 100 ml NS with same amount of output.
--- NOTE | 2023-02-13 07:05 | NUR ---
RN NOTES RECEIVED PT ON BED, INTUBATED ON SEDATION, DIPRIVAN AT 30 MCG/KG/MIN, RUNNING , TOLERATING VENT SETTING WELL, T=95.0 PT PLACED ON DARIAN HUGGER , ON TELE SB HR IN 50'S , VASQUEZ TO GRAVITY NO URINE OUTPUT NOTED, IVF INFUSING AT 75CC/HR, TF AT 15 CC/HR RUNNING , NO RESIDUAL NOTED , IV SITES CDI, SR UP x3, CALL LIGHT WITHIN EASY REACH, BED LOCKED AND IN LOWEST POSITION, CONTINUE TO MONITOR .
[2023-02-13 07:46] LABS: D-DIMER 19.21 mg/L(FEU (0.17-0.50)
[2023-02-13] MEDS: ENSURE ENLIVE 237 ML LIQUID (VANILLA) PO SCH ×3 (08:00→16:39)
[2023-02-13] MEDS: ALBUTEROL FS 2.5 MG/3 ML VIAL.NEB NEB SCH ×3 (08:06→19:59)
[2023-02-13] MEDS: IPRATROPIUM NEB FS 0.5 MG/2.5 ML AMPUL.NEB NEB SCH ×3 (08:07→19:59)
[2023-02-13] MEDS: PANTOPRAZOLE 40 MG VIAL IV SCH ×2 (08:08→21:00)
[2023-02-13] MEDS: CEFEPIME 2 GM in IV D5W 100 ML IV SCH ×2 (08:08→21:00)
[2023-02-13] MEDS: methylPREDNISolone SOD SUCC 40 MG/ML VIAL IV SCH (08:09)
[2023-02-13] MEDS: METOCLOPRAMIDE HCL 10 MG TABLET PO SCH ×2 (08:09→16:39)
[2023-02-13] MEDS: FOLIC ACID 1 MG TABLET PO SCH (08:10)
--- NOTE | 2023-02-13 09:05 | NUR ---
RN NOTES DR YBARRA NOTIFIED REGARDING LAB RESULTS , NO PLATLES TRANSFUSION PER DR YBARRA .
[2023-02-13 09:27] LABS: BAND % (MANUAL) 16 % (0.0-5.0); LYMPHOCYTES % (MANUAL) 14 % (16-48); METAMYELOCYTES % 2 % (0-0); MONOCYTES % (MANUAL) 4 % (0-11.0); MYELOCYTES % 2 % (0-0); NEUTROPHILS % (MANUAL) 62 (42-76)
--- NOTE | 2023-02-13 14:00 | NUR ---
RN NOTES ONE UNIT OF PRBC INFUSED, PT TOLERATED WELL, NO DISTRESS NOTED, CONTINUE TO MONITOR
--- NOTE | 2023-02-13 14:49 | NUR ---
RN NOTES PT OFF SEDATION , TOLERATING VENT SETTING WELL, O2 SAT WNL, DOES NOT FOLLOW COMMAND, EYES OPEN AT TIMES , CONTINUE TO MONITOR
[2023-02-13 15:08] LABS: ABG BASE EXCESS -10.8 mmol/L; ABG OXYGEN SATURATION 94.2 % (92.0-98.5); ABG PCO2 39.4 mmHg (35.0-45.0); ABG PH 7.228 (7.350-7.450); ABG PO2 76.6 mmHg (75.0-100.0); AaDO2 127.2 mmHg; COHb 0.6 % (0.5-1.5); MetHb 0.2 % (0.0-1.5); O2Hb 93.4 % (94.0-97.0); SITE, ABG Left Brachial; VENT MODE, BG AC 18 450 35% +5
[2023-02-13] MEDS: JEVITY 1.2 CAL 1,000 ML BOTTLE GT PRN (16:48)
--- NOTE | 2023-02-13 18:18 | NUR ---
RN NOTES PT REMAINS INTUBATED, OFF SEDATION , DOES NOT FOLLOW COMMAND, TOLERATING VENT SETTING WELL, RECEIVED ONE UNIT OF PRBC ON THIS SHIFT, TF AT 15CC/HR RUNNING , NO RESIDUAL NOTED, WILL ENDORSE TO MEDICAL RECORDS FIELD TECHNICIAN NURSE FOR CONTINUITY OF CARE
--- NOTE | 2023-02-13 20:00 | NUR ---
Received patient awake non verbal non interactive off sedation.Orally intubated to mechanical vent with prescribed settings well tolerated.SPO2 99%.SR.VS stable.Hemodynamically stable.GT feeding in progress.Aspiration precaution implemented.HOB elevated.FC to gravity.No acute distress noted. With IVF NS infusing via LILI ML site intact.Turned and repositioned to comfort.Continue monitoring.
[2023-02-13 20:13] LABS: HEMOGLOBIN 8.2 g/dL (13.5-17.5)
[2023-02-14] VITALS (43 sets, daily range): BP systolic 87–210; BP diastolic 48–73
[2023-02-14] MEDS: IV NS 0.9% 1,000 ML IV PRN ×3 (01:19→19:03)
[2023-02-14] MEDS: HYDROCORTISONE SOD SUCCINATE 100 MG/2 ML VIAL IV SCH ×3 (04:49→20:52)
[2023-02-14 05:27] LABS: CALCIUM, SERUM 6.1 mg/dL (8.5-10.1); CARBON DIOXIDE 15 mmol/L (21-32); CHLORIDE 98 mmol/L (98-107); CREATININE 3.5 mg/dL (0.6-1.3); GLUCOSE 101 mg/dL (74-106); POTASSIUM 5.4 mmol/L (3.5-5.1); SODIUM SERUM 126 mmol/L (136-145)
[2023-02-14 05:37] LABS: UREA NITROGEN, BLOOD 111 mg/dL (7-18)
[2023-02-14 05:43] LABS: D-DIMER 25.05 mg/L(FEU (0.17-0.50)
[2023-02-14 05:46] LABS: BASOPHILS % (AUTO) 0.2 % (0.0-2.0); EOSINOPHILS % (AUTO) 0.1 % (0.0-6.0); HEMATOCRIT 25 % (39-51); HEMOGLOBIN 8.3 g/dL (13.5-17.5); LYMPHOCYTES # (AUTO) 1.3 K/uL (0.8-4.8); LYMPHOCYTES % (AUTO) 9.8 % (20.0-44.0); MEAN CORPUSCULAR HGB CONC 33 g/dl (31.0-36.0); MEAN CORPUSCULAR VOLUME 92 fL (80-96); MONOCYTES # (AUTO) 0.3 K/uL (0.1-1.30); MONOCYTES % (AUTO) 2.7 % (2.0-12.0); NEUTROPHILS # (AUTO) 11.1 K/uL (1.8-8.9); NEUTROPHILS % (AUTO) 87.2 % (43.0-81.0); RED BLOOD CELL COUNT(AUTO) 2.73 MIL/uL (4.5-6.0); WHITE BLOOD COUNT (AUTO) 12.8 K/uL (4.3-11.0)
[2023-02-14 05:47] LABS: PLATELET COUNT (AUTO) 20 K/uL (150-450)
--- NOTE | 2023-02-14 06:00 | NUR ---
Patient resting in no acute distress.VS remains stable.AM care done.Tolerating gt feeding well. Turned and repositioned.No significant change noted during the shift.
--- NOTE | 2023-02-14 07:00 | NUR ---
RN NOTES RECEIVED PT ON BED, INTUBATED , EYES OPEN, DOES NOT FOLLOW COMMAND, RUNNING , TOLERATING VENT SETTING WELL, ON DARIAN HUGER, T=96.0 ON TELE SB HR IN 50'S , VASQUEZ TO GRAVITY NO URINE OUTPUT NOTED, IVF INFUSING AT 125CC/HR, TF AT 15 CC/HR RUNNING , NO RESIDUAL NOTED , IV SITES CDI, SR UP x3, CALL LIGHT WITHIN EASY REACH, BED LOCKED AND IN LOWEST POSITION, CONTINUE TO MONITOR .
[2023-02-14] MEDS: ALBUTEROL FS 2.5 MG/3 ML VIAL.NEB NEB SCH ×3 (07:19→20:03)
[2023-02-14] MEDS: IPRATROPIUM NEB FS 0.5 MG/2.5 ML AMPUL.NEB NEB SCH ×3 (07:19→20:03)
[2023-02-14] MEDS ORDERED: CEFEPIME 2 GM in IV D5W 100 ML IV SCH (07:30)
[2023-02-14] MEDS: ENSURE ENLIVE 237 ML LIQUID (VANILLA) PO SCH ×3 (08:00→16:32)
[2023-02-14] MEDS: FOLIC ACID 1 MG TABLET PO SCH (08:12)
[2023-02-14] MEDS: PANTOPRAZOLE 40 MG VIAL IV SCH ×2 (08:12→20:52)
[2023-02-14] MEDS: METOCLOPRAMIDE HCL 10 MG TABLET PO SCH ×2 (08:12→16:32)
[2023-02-14 09:57] LABS: BAND % (MANUAL) 9 % (0.0-5.0); LYMPHOCYTES % (MANUAL) 15 % (16-48); METAMYELOCYTES % 1 % (0-0); MONOCYTES % (MANUAL) 4 % (0-11.0); MYELOCYTES % 1 % (0-0); NEUTROPHILS % (MANUAL) 70 (42-76)
--- NOTE | 2023-02-14 10:25 | NUR ---
RT PER DR LLOYD PATIENT PLACED ON VENT WEANING, PATIENT WAS UNABLE TO TOLERATE WEANING AND WAS PLACED BACK ON AC MODE FOR SOB. Addendum: 02/14/23 at 1026 by ESTEBAN AUSTIN RT Amended: Links added.
--- NOTE | 2023-02-14 13:00 | NUR ---
RN NOTES ET TUBE CARE DONE , PT BACK ON AC MODE ON VENT , O2 SAT WNL, CONTINUE TO MONITOR
[2023-02-14] MEDS ORDERED: SODIUM POLYSTYRENE SULFONATE 15 G/60 ML BOTTLE PO ONE (14:30)
--- NOTE | 2023-02-14 18:08 | NUR ---
RN NOTES PT REMAINS INTUBATED, OFF SEDATION , DOES NOT FOLLOW COMMAND, TOLERATING VENT SETTING WELL,TF AT 15CC/HR RUNNING , NO RESIDUAL NOTED, WILL ENDORSE TO IT CONSULTANT NURSE FOR CONTINUITY OF CARE
--- NOTE | 2023-02-14 19:30 | NUR ---
PT REMAINS INTUBATED, OFF SEDATION. ON SINUS RHYTHM. TOLERATING VENT SETTINGS. TF INFUSING AT 15CC/HR. NO RESIDUAL NOTED. IV ACCESS ON LFA AND LILI ML #18G INFUSING NS AT 125 ML/HR. VASQUEZ CATH IN PLACE WITH MINIMAL OUTPUT. SAFETY MEASURES IN PLACE. WILL CONTINUE PLAN OF CARE.
[2023-02-14] MEDS: hydrALAZINE HCL IV 20 MG VIAL IV PRN (19:42)
--- NOTE | 2023-02-14 19:45 | NUR ---
BP 205/95, HR 77. PRN APRESOLINE 10MG IV GIVEN NEEDED AND ORDERED.
[2023-02-14] MEDS: CEFEPIME 2 GM in IV D5W 100 ML IV SCH (20:52)
[2023-02-15] VITALS (65 sets, daily range): BP systolic 45–134; BP diastolic 29–82
[2023-02-15] MEDS ORDERED: NOREPINEPHRINE 4 MG/4 ML AMPUL IV ONE (00:16)
[2023-02-15] MEDS: NOREPINEPHRINE 8 MG in IV NS 0.9% 242 ML IV PRN ×3 (00:28→22:19)
[2023-02-15] MEDS: PROPOFOL 100 ML IV PRN ×2 (02:54→18:41)
[2023-02-15] MEDS ORDERED: Sodium Bicarbonate 100 MEQ in IV NS 0.9% 1,000 ML IV PRN (03:00)
[2023-02-15] MEDS ORDERED: SODIUM BICARBONATE SYR 50 MEQ/50 ML DISP.SYRIN ONE (03:06)
--- NOTE | 2023-02-15 03:20 | NUR ---
02:30 NOTED PT IS AGONAL BREATHING. CALLED RT. SECRETION SUCTIONED. ABG DONE. ABG'S RESULTED: PH 7.076; PCO2 32.4; PO2 79.3; HCO3 9.3. CALLED [facility]ITE UTILIZATION SUPERVISOR WITH ORDERS RECEIVED AND CARRIED OUT. 02:54 PT SEDATED ON DIPRIVAN AND TITRATED PER PROTOCOL. 03:11 PT STARTED ON BICARB DRIP ORDERED. CONTINUE TO MONITOR.
[2023-02-15] MEDS: HYDROCORTISONE SOD SUCCINATE 100 MG/2 ML VIAL IV SCH ×3 (05:01→21:06)
[2023-02-15 05:54] LABS: BASOPHILS # (AUTO) 0.1 K/uL (0.0-0.2); BASOPHILS % (AUTO) 0.5 % (0.0-2.0); EOSINOPHILS % (AUTO) 0.1 % (0.0-6.0); HEMATOCRIT 25 % (39-51); HEMOGLOBIN 8.2 g/dL (13.5-17.5); LYMPHOCYTES # (AUTO) 2.6 K/uL (0.8-4.8); LYMPHOCYTES % (AUTO) 16.8 % (20.0-44.0); MEAN CORPUSCULAR HGB CONC 32 g/dl (31.0-36.0); MEAN CORPUSCULAR VOLUME 93 fL (80-96); MONOCYTES # (AUTO) 0.4 K/uL (0.1-1.30); MONOCYTES % (AUTO) 2.5 % (2.0-12.0); NEUTROPHILS # (AUTO) 12.4 K/uL (1.8-8.9); NEUTROPHILS % (AUTO) 80.1 % (43.0-81.0); RED BLOOD CELL COUNT(AUTO) 2.71 MIL/uL (4.5-6.0); WHITE BLOOD COUNT (AUTO) 15.5 K/uL (4.3-11.0)
[2023-02-15 06:03] LABS: PLATELET COUNT (AUTO) 32 K/uL (150-450)
[2023-02-15 06:42] LABS: ALBUMIN 1.5 g/dL (3.4-5.0); CALCIUM, SERUM 6.4 mg/dL (8.5-10.1); CARBON DIOXIDE 11 mmol/L (21-32); CHLORIDE 99 mmol/L (98-107); GLUCOSE 103 mg/dL (74-106); MAGNESIUM 1.9 mg/dL (1.8-2.4); POTASSIUM 5.1 mmol/L (3.5-5.1); SODIUM SERUM 129 mmol/L (136-145)
[2023-02-15 07:48] LABS: UREA NITROGEN, BLOOD 124 mg/dL (7-18)
[2023-02-15 07:49] LABS: PHOSPHORUS 8.9 mg/dL (2.5-4.9)
[2023-02-15] MEDS: IPRATROPIUM NEB FS 0.5 MG/2.5 ML AMPUL.NEB NEB SCH ×3 (07:51→19:38)
[2023-02-15] MEDS: ALBUTEROL FS 2.5 MG/3 ML VIAL.NEB NEB SCH ×3 (07:51→19:38)
[2023-02-15] MEDS: ENSURE ENLIVE 237 ML LIQUID (VANILLA) PO SCH (08:00)
--- NOTE | 2023-02-15 08:22 | NUR ---
RN NOTES NOTIFIED DR. LITTLE THAT LAB CALLED TO NOTIFY BUN OF 124 UP FROM 111 YESTERDAY.
[2023-02-15] MEDS: METOCLOPRAMIDE HCL 10 MG TABLET PO SCH ×2 (08:51→17:20)
[2023-02-15] MEDS: FOLIC ACID 1 MG TABLET PO SCH (08:51)
[2023-02-15] MEDS: PANTOPRAZOLE 40 MG/PACK PACK GT SCH ×2 (08:51→21:06)
--- NOTE | 2023-02-15 08:52 | NUR ---
RN NOTES HELD ENSURE; PT CURRENTLY ON CONT TUBE FEEDING
[2023-02-15] MEDS: JEVITY 1.2 CAL 1,000 ML BOTTLE GT PRN (10:50)
--- NOTE | 2023-02-15 11:00 | NUR ---
RN NOTES RECEIVED ORDERS FROM DR. KING TO D/C ENSURE SUPPLEMENT FOR PT PT IS ALREADY ON TUBE FEEDING
[2023-02-15] MEDS: Sodium Bicarbonate 100 MEQ in IV NS 0.9% 1,000 ML IV SCH ×2 (13:24→23:55)
[2023-02-15 15:59] LABS: BAND % (MANUAL) 3 % (0.0-5.0); LYMPHOCYTES % (MANUAL) 12 % (16-48); METAMYELOCYTES % 4 % (0-0); MONOCYTES % (MANUAL) 4 % (0-11.0); MYELOCYTES % 3 % (0-0); NEUTROPHILS % (MANUAL) 74 (42-76)
--- NOTE | 2023-02-15 19:36 | NUR ---
RN CLOSING NOTES PT LOOKS COMFORTABLE. ALL DUE MEDICATIONS GIVEN. WOUND CARE COMPLETED ON MY SHIFT. REPORT GIVEN TO ONCOMING NURSE FOR CONTINUATION OF CARE.
[2023-02-15] MEDS: CEFEPIME 2 GM in IV D5W 100 ML IV SCH (21:05)
--- NOTE | 2023-02-15 23:40 | NUR ---
ICU/RN: SPOKE WITH SE WHITE ACNP ABOUT PT BP DROPPING RECEIVED NEW ORDERS. WILL CONTINUE WITH PLAN OF CARE.
[2023-02-16] VITALS (22 sets, daily range): BP systolic 48–102; BP diastolic 34–69
[2023-02-16] MEDS ORDERED: NOREPINEPHRINE 32 MG in IV NS 0.9% 218 ML IV PRN ×2
[2023-02-16] MEDS ORDERED: PHENYLEPHRINE 100 MG in IV NS 0.9% 240 ML IV PRN ×2
[2023-02-16] MEDS ORDERED: NOREPINEPHRINE 4 MG/4 ML AMPUL IV ONE (01:01)
[2023-02-16] MEDS ORDERED: PHENYLEPHRINE 10 MG/ML VIAL ONE (02:03)
--- NOTE | 2023-02-16 02:13 | NUR ---
ICU/RN: SECOND VASOPRESSOR ADDED FOR BP SUPPORT.
[2023-02-16 05:24] LABS: BASOPHILS % (AUTO) 0.4 % (0.0-2.0); EOSINOPHILS % (AUTO) 0.1 % (0.0-6.0); HEMATOCRIT 21 % (39-51); LYMPHOCYTES # (AUTO) 3.1 K/uL (0.8-4.8); LYMPHOCYTES % (AUTO) 27.9 % (20.0-44.0); MEAN CORPUSCULAR HGB CONC 32 g/dl (31.0-36.0); MEAN CORPUSCULAR VOLUME 96 fL (80-96); MONOCYTES # (AUTO) 0.2 K/uL (0.1-1.30); MONOCYTES % (AUTO) 1.9 % (2.0-12.0); NEUTROPHILS # (AUTO) 7.7 K/uL (1.8-8.9); NEUTROPHILS % (AUTO) 69.7 % (43.0-81.0); RED BLOOD CELL COUNT(AUTO) 2.21 MIL/uL (4.5-6.0); WHITE BLOOD COUNT (AUTO) 11.1 K/uL (4.3-11.0)
[2023-02-16] MEDS ORDERED: VASOPRESSIN INJ 40 UNIT in IV NS 0.9% 38 ML IV PRN (05:30)
[2023-02-16 05:34] LABS: HEMOGLOBIN 6.7 g/dL (13.5-17.5); PLATELET COUNT (AUTO) 36 K/uL (150-450)
[2023-02-16] MEDS ORDERED: VASOPRESSIN INJ 20 UNIT/ML VIAL ONE (05:36)
[2023-02-16 05:41] LABS: CHLORIDE 100 mmol/L (98-107); CREATININE 4.2 mg/dL (0.6-1.3); GLUCOSE 191 mg/dL (74-106); SODIUM SERUM 131 mmol/L (136-145)
[2023-02-16] MEDS: HYDROCORTISONE SOD SUCCINATE 100 MG/2 ML VIAL IV SCH (05:44)
--- NOTE | 2023-02-16 05:47 | NUR ---
ICU/RN: SPOKE WITH SE CANALES. UPDATED ON PTS STATUS. UNABLE TO READ BP. 3RD VASOPRESSOR ADDED FOR BP SUPPORT. ALSO RELAYED CRITICAL HGB. 1 UNIT PRBC ORDERED STAT. PER LAB TYPE AND SCREEN . WILL REDRAW RIGHT NOW.
[2023-02-16 05:51] LABS: D-DIMER 21.33 mg/L(FEU (0.17-0.50)
[2023-02-16 05:59] LABS: CARBON DIOXIDE 9 mmol/L (21-32); PHOSPHORUS 12.6 mg/dL (2.5-4.9); POTASSIUM 6.9 mmol/L (3.5-5.1); UREA NITROGEN, BLOOD 132 mg/dL (7-18)
[2023-02-16] MEDS ORDERED: INSULIN REGULAR, HUMAN 100 UNIT/ML 3 ML VIAL IV STA (06:10)
--- NOTE | 2023-02-16 06:28 | NUR ---
ICU/RN: CRITICAL LABS RELAYED TO [facility]. POTASSIUM 6.9, CO2 9, BUN 132, PHOS 12.6 AND CALCIUM 6.0 NEW ORDERS RECEIVED AND CARRIED OUT. STILL UNABLE TO READ NIBP ALL VASOPRESSORS MAXED OUT.
[2023-02-16] MEDS ORDERED: INSULIN REGULAR, HUMAN 100 UNIT/ML 3 ML VIAL SQ ONE (06:30)
[2023-02-16] MEDS ORDERED: DEXTROSE 50%-WATER 50 ML DISP.SYRIN IVP ONE (06:30)
--- NOTE | 2023-02-16 07:12 | NUR ---
ICU/RN: REPORT TO CATRACHITO MEDRANO FOR CONT OF CARE.
[2023-02-16] MEDS: ALBUTEROL FS 2.5 MG/3 ML VIAL.NEB NEB SCH (07:35)
[2023-02-16] MEDS: IPRATROPIUM NEB FS 0.5 MG/2.5 ML AMPUL.NEB NEB SCH (07:35)
--- NOTE | 2023-02-16 08:21 | NUR ---
RN NOTES CODE BLUE CALLED PT WAS ASYSTOLE, COMPRESSIONS STARTED. DR. LLOYD AT BEDSIDE TO CALL TIME OF AT 0823. NOTIFIED NURSING AUTO MECHANIC TC AT 0824 AND ADMITTING FERNANDO AT 0825 OF PT'S . PT'S DPOA, FRANCISCO WAS NOTIFIED AT 0845 REGARDING ; PER FRANCISCO, PT HAS A MORTUARY SET UP AND WILL SEND TO [employer]. NOTIFIED [facility] AT 0900 AND SPOKE TO MARYBETH WITH REF#[id number] WHO STATED THAT [facility] WILL NOT MOVE FORWARD WITH ORGAN DONATION FOR PT. RECORD OF /AUTH FOR RELEASE OF REMAINS COMPLETED FOR PT.
[2023-02-16] MEDS ORDERED: EPINEPHRINE (1:10,000) SYRINGE 1 MG/10 ML DISP.SYRIN IVP ONE (12:07)
== END 2023-02-16 12:08 | DRG 870 ==
LOC: ER 18:42 → TELE 22:16 → ICU 02-04 10:14 → TELE 02-05 11:05 → ICU 02-06 15:25
PROVIDERS: ADMIT Nurse Practitioner Family; ATTEND Student in an Organized Health Care Education/Training Program
PROC: 05HA33Z Insertion of Infusion Device into Left Brachial Vein, Percutaneous Approach (ICD-10-PCS; 2023-02-04)
PROC: 5A1955Z Respiratory Ventilation, Greater than 96 Consecutive Hours (ICD-10-PCS; principal; 2023-02-06)
PROC: 0BH18EZ Insertion of Endotracheal Airway into Trachea, Via Natural or Artificial Opening Endoscopic (ICD-10-PCS; 2023-02-06)
PROC: 0DH63UZ Insertion of Feeding Device into Stomach, Percutaneous Approach (ICD-10-PCS; 2023-02-06)
PROC: 30233N1 Transfusion of Nonautologous Red Blood Cells into Peripheral Vein, Percutaneous Approach (ICD-10-PCS; 2023-02-07)
PROC: 30233P1 Transfusion of Nonautologous Frozen Red Cells into Peripheral Vein, Percutaneous Approach (ICD-10-PCS; 2023-02-07)
PROC: 30233R1 Transfusion of Nonautologous Platelets into Peripheral Vein, Percutaneous Approach (ICD-10-PCS; 2023-02-07)
PROC: 30233M1 Transfusion of Nonautologous Plasma Cryoprecipitate into Peripheral Vein, Percutaneous Approach (ICD-10-PCS; 2023-02-07)
PROC: 6A550Z2 Pheresis of Platelets, Single (ICD-10-PCS; 2023-02-07)
DX: A41.9 Sepsis, unspecified organism (principal); J15.6 Pneumonia due to other Gram-negative bacteria; D65 Disseminated intravascular coagulation [defibrination syndrome]; G92.8 Other toxic encephalopathy; J96.01 Acute respiratory failure with hypoxia; J96.02 Acute respiratory failure with hypercapnia; E43 Unspecified severe protein-calorie malnutrition; R65.21 Severe sepsis with septic shock; N17.0 Acute kidney failure with tubular necrosis; J44.1 Chronic obstructive pulmonary disease with (acute) exacerbation; C79.51 Secondary malignant neoplasm of bone; E27.40 Unspecified adrenocortical insufficiency; E87.1 Hypo-osmolality and hyponatremia; E87.0 Hyperosmolality and hypernatremia; E87.20 Acidosis, unspecified; M48.56XA Collapsed vertebra, not elsewhere classified, lumbar region, initial encounter for fracture; J90 Pleural effusion, not elsewhere classified; Z68.1 Body mass index [BMI] 19.9 or less, adult; J98.11 Atelectasis; R64 Cachexia; C7A.8 Other malignant neuroendocrine tumors; C34.31 Malignant neoplasm of lower lobe, right bronchus or lung; C34.92 Malignant neoplasm of unspecified part of left bronchus or lung; J44.0 Chronic obstructive pulmonary disease with (acute) lower respiratory infection; R62.7 Adult failure to thrive; D50.0 Iron deficiency anemia secondary to blood loss (chronic); D53.9 Nutritional anemia, unspecified; E53.8 Deficiency of other specified B group vitamins; E78.1 Pure hyperglyceridemia; E83.39 Other disorders of phosphorus metabolism; E83.42 Hypomagnesemia; E83.52 Hypercalcemia; E87.5 Hyperkalemia; E87.6 Hypokalemia; F32.9 Major depressive disorder, single episode, unspecified; K29.70 Gastritis, unspecified, without bleeding; R13.10 Dysphagia, unspecified; N40.0 Benign prostatic hyperplasia without lower urinary tract symptoms; Z20.822 Contact with and (suspected) exposure to COVID-19; N28.1 Cyst of kidney, acquired; Z87.891 Personal history of nicotine dependence; Z91.15 Patient's noncompliance with renal dialysis; Z79.899 Other long term (current) drug therapy; R31.9 Hematuria, unspecified
CPT/HCPCS: 31720; 36410; 36415; 36600; 43246; 71045-TC; 73130-TC; 76770-TC; 80048-TC; 80053-TC; 80076-TC; 81001; 82040-TC; 82533; 82728-TC; 82803-TC; 82962-TC; 83540-TC; 83735-TC; 84100-TC; 84443-TC; 84478-TC; 84550-TC; 85025-TC; 85027-TC; 85396; 86850-TC; 87040-TC; 87081-TC; 87086-TC; 92526; 92611-TC; 93971-TC; 94002-TC; 94003-TC; 94799-TC; 97112-TC; 97530-TC; A4223; C9113; C9803; G0378; J0171; J0360; J0692; J1644; J1720; J1815; J2370; J2405; J2704; J2920; J2930; J3430; J3475; J3480; J3490; J7030; J7050; J7060; J7070; J8597; P9012; P9016; P9017; P9034; P9035